=== PATIENT | male | born 1945 | race Native Hawaiian/Other Pacific Islander ===

== ENCOUNTER 2017-07-02 18:52 | Inpatient (IN) | payer OTHER, MEDICARE ==
[~2017-07-02] VITALS: Ht 165.1 cm; Wt 77.0 kg
[2017-07-02] VITALS (10 sets, daily range): BP systolic 62–103; BP diastolic 40–62; PULSE 90–115; RESP 16–20; TEMP 100.1–102.7; O2SAT 94–100
[~2017-07-02 18:52] MED LIST: ASPI81TA82 PO; HYDR-3129 PO; HYDR10TA65 PO; LEVO125T3 PO; MULTCAP14 PO; OMEG5CAP PO; OMEP40CA2 PO; PROBCAP4 PO; ROSU40 PO; VITA-13 PO; VITA-83 PO; VITA500S3 PO
[2017-07-02] MEDS ORDERED: SODIUM CHLOR 0.9% 1000 ML INJ 1,000 ML IV SCH (19:20)
[2017-07-02] MEDS ORDERED: ACETAMINOPHEN 325 MG TAB PO ONE (19:30)
[2017-07-02] MEDS ORDERED: MORPHINE SULFATE 4 MG/ML INJ IV PUSH ONE (19:30)
[2017-07-02] MEDS ORDERED: ONDANSETRON HCL 4 MG/2 ML VIAL IVP ONE (19:30)
--- NOTE | 2017-07-02 19:31 | PD ---
HPI Chief Complaint: Complaint Time Seen by Provider: 19:12 Travel History International Travel<30 days: No Contact w/Intl Traveler<30days: No Traveled to known affect area: No History of Present Illness HPI 72yo M with PMH of pituitary tumor s/p resection now on hydrocortisone, kidney stones, alpha thalassemia here with c/o not feeling well since yesterday. Pt had fever of 103.1F at home today and associated symptoms include dysuria, increased urinary frequency, nausea and generalized fatigue. Denies any chest pain, sob, vomiting, abdominal pain, focal weakness or numbness. Pt had urine infection 2 weeks ago and was given antibiotics by his urologist. PFSH Past Medical History Heart Rhythm Problems: No Cancer: No Cardiovascular Problems: No High Cholesterol: Yes Congestive Heart Failure: No Cerebrovascular Accident: No Diabetes: No Endocrine: Yes (PITUITARY SX X2 (BENIGN TUMOR)) Gastrointestinal Disorders: Yes (GERD) GERD: Yes Genitourinary: No Hepatitis: No Hiatal Hernia: No Immune Disorder: Yes (WEAKENED IMMUNE SYS. DUE TO PITUITARY INSUFF.) Musculoskeletal: Yes (LUMBAR PAIN, OSTEOPOROSI SPINAL STENOSIS) Neurologic: Yes (TRANSIENT NUMBNESS POSTERIOR FEET/ LEGS/HIPS) Psychiatric: No Reproductive: No Respiratory: Yes (SOB AT TIMES) Immunizations Current: Yes Seizures: No Thyroid Disease: Yes ?: Not Past Surgical History Abdominal Surgery: No AICD: No Body Medical Devices: CERVICAL PLATE Cardiac Surgery: No Ear Surgery: No Endocrine Surgery: Yes (EXC. BENIGN MASS PITUITARY X2) Eye Surgery: No Genitourinary Surgery: No Joint Replacement: No Neurologic Surgery: Yes (08/19/14 L2, 3, 4, 5-S1 DECOMPRESSIVE LAMINOTOMY, EVACUATION HEMATOMA) Oral Surgery: No Pacemaker: No Thoracic Surgery: No Other Surgery: Yes Social History Alcohol Use: No Tobacco Use: No Substance Use: No Allergies-Medications (Allergen,Severity, Reaction): Coded Allergies: No Known Allergies (Unverified Allergy, Unknown, 07/02/17) Reported Meds & Prescriptions Reported Meds & Active Scripts Active [place] 10-325 mg (Hydrocodone-Acetaminophen 10-325 mg) Acetaminophen 325/10 Hydrocodone Tab 1 Tab PO Q6H PRN Reported Probiotic Acidophilus (Acidophilus) 12.9 Mg (2 Billion Cell) Cap 1 Tab PO DAILY Vitamin C (Calcium Ascorbate) 500 Mg Tab 500 Mg PO DAILY Multi For Him (Multivitamins/Minerals) For Him Cap 1 Cap PO DAILY Crestor (Rosuvastatin Calcium) 40 Mg Tab 20 Mg PO HS Aspir-81 (Aspirin) 81 Mg Tab 81 Mg PO DAILY Vitamin B-12 (Cyanocobalamin) 500 Mcg Tab 1 Tab PO DAILY Vitamin D3 (Cholecalciferol) 1,000 Unit Tab 1,000 Unit PO BID Fish Oil 1200 mg ([place]-3 Fatty Acids) 1 Cap Cap 1 Cap PO DAILY TAKES 1 TSP OIL Levothyroxine 125 mcg (Levothyroxine Sodium) 125 Mcg Tab 1 Tab PO DAILY Omeprazole 40 mg (Omeprazole) 40 Mg Cap 40 Mg PO DAILY Hydrocortisone 10 Mg Tab 50 Mg PO BID INCREASE DIRECTED Review of Systems Except as stated in HPI: all other systems reviewed are Neg Physical Exam Narrative GENERAL: 72yo M in mild distress. SKIN: Focused skin assessment warm/dry. HEAD: Atraumatic. Normocephalic. EYES: Pupils equal and round. No scleral icterus. No injection or drainage. ENT: No nasal bleeding or discharge. Mucous membranes pink and moist. NECK: Trachea midline. No JVD. CARDIOVASCULAR: Tachycardic in the low 100s RESPIRATORY: No accessory muscle use. Clear to auscultation. Breath sounds equal bilaterally. GASTROINTESTINAL: Abdomen soft, +TTP suprapubic, LLQ, RLQ. No rebound tenderness or guarding. BACK: No CVA tenderness bilaterally. MUSCULOSKELETAL: No obvious deformities. No clubbing. No cyanosis. No edema. NEUROLOGICAL: Awake and alert. No obvious cranial nerve deficits. Motor grossly within normal limits. Normal speech. PSYCHIATRIC: Appropriate mood and affect; insight and judgment normal. Data Data Last Documented VS Vital Signs Date Time Temp Pulse Resp B/P (MAP) Pulse Ox O2 Delivery O2 Flow Rate FiO2 07/02/17 21:46 100.1 07/02/17 21:39 97 16 07/02/17 21:36 100 Nasal Cannula 3.00 Orders Orders Basic Metabolic Panel (Bmp) (07/02/17 19:20) Complete Blood Count With Diff (07/02/17 19:20) Lipase (07/02/17 19:20) Prothrombin Time / Inr (Pt) (07/02/17 19:20) Act Partial Throm Time (Ptt) (07/02/17 19:20) Urinalysis - C+S If Indicated (07/02/17 19:20) Ct Abd/Pel W Iv Contrast(Rout) (07/02/17 19:20) Morphine Inj (Morphine Inj) (07/02/17 19:30) Ondansetron Inj (Zofran Inj) (07/02/17 19:30) Sodium Chlor 0.9% 1000 Ml Inj (Ns 1000 M (07/02/17 19:20) Blood Culture (07/02/17 19:20) Lactic Acid Sepsis Protocol (07/02/17 19:20) Acetaminophen (Tylenol) (07/02/17 19:30) Influenzae A/B Antigen (07/02/17 19:25) Vancomycin Inj (Vancomycin Inj) (07/02/17 20:30) Piperacil-Tazo 3.375 Gm Premix (Zosyn 3. (07/02/17 20:30) Iodixanol 320 Inj (Rad Ct) (Visipaque 32 (07/02/17 20:40) Sodium Chlor 0.9% 1000 Ml Inj (Ns 1000 M (07/02/17 21:00) Electrocardiogram (07/02/17 ) Urine Culture (07/02/17 21:20) Sodium Chlor 0.9% 1000 Ml Inj (Ns 1000 M (07/02/17 22:00) Hydrocortisone Inj (Solucortef Inj) (07/02/17 22:00) Admit Order (Ed Use Only) (07/02/17 22:08) Troponin I (07/02/17 20:00) Labs Laboratory Tests Test 07/02/17 20:00 07/02/17 21:20 White Blood Count 9.9 TH/MM3 Red Blood Count 5.51 MIL/MM3 Hemoglobin 11.9 GM/DL Hematocrit 36.5 % Mean Corpuscular Volume 66.2 FL Mean Corpuscular Hemoglobin 21.6 PG Mean Corpuscular Hemoglobin Concent 32.6 % Red Cell Distribution Width 16.5 % Platelet Count 176 TH/MM3 Mean Platelet Volume 7.7 FL Neutrophils (%) (Auto) 80.2 % Lymphocytes (%) (Auto) 13.2 % Monocytes (%) (Auto) 3.0 % Eosinophils (%) (Auto) 0.4 % Basophils (%) (Auto) 3.2 % Neutrophils # (Auto) 8.0 TH/MM3 Lymphocytes # (Auto) 1.3 TH/MM3 Monocytes # (Auto) 0.3 TH/MM3 Eosinophils # (Auto) 0.0 TH/MM3 Basophils # (Auto) 0.3 TH/MM3 CBC Comment AUTO DIFF Differential Comment AUTO DIFF CONFIRMED Platelet Estimate NORMAL Platelet Morphology Comment NORMAL Ovalocytes 1+ Prothrombin Time 11.0 SEC Prothromb Time International Ratio 1.1 RATIO Activated Partial Thromboplast Time 24.6 SEC Blood Urea Nitrogen 22 MG/DL Creatinine 1.70 MG/DL Random Glucose 84 MG/DL Calcium Level 8.9 MG/DL Sodium Level 135 MEQ/L Potassium Level 3.3 MEQ/L Chloride Level 98 MEQ/L Carbon Dioxide Level 27.7 MEQ/L Anion Gap 9 MEQ/L Estimat Glomerular Filtration Rate 40 ML/MIN Lactic Acid Level 1.7 mmol/L Troponin I LESS THAN 0.02 NG/ML Lipase 201 U/L Urine Color YELLOW Urine Turbidity MARKED Urine pH 7.0 Urine Specific [place] 1.028 Urine Protein 100 mg/dL Urine Glucose (UA) NEG mg/dL Urine Ketones NEG mg/dL Urine Occult Blood LARGE Urine Nitrite POS Urine Bilirubin NEG Urine Leukocyte Esterase LARGE Urine RBC 10-14 /hpf Urine WBC INNUM /hpf Urine WBC Clumps MOD Urine Squamous Epithelial Cells 0-5 /hpf Urine Bacteria MOD /hpf Urine Mucus FEW /lpf Microscopic Urinalysis Comment CULTURE INDICATED MDM Medical Decision Making Medical Screen Exam Complete: Yes Emergency Medical Condition: Yes Interpretation(s) EKG: NSR 96bpm. Normal axis. ST depression V4-6. Differential Diagnosis Pyelonephritis vs. cystitis vs. obstructive uropathy vs. colitis vs. adrenal crisis. Narrative Course 72yo M here with dysuria, increased urinary frequency, fever, nausea. Pt is febrile, tachycardic and hypotensive at triage. BP is improved with systolic of 102 when he is in the medical bed. Will do sepsis work up including blood culture, lactic acid, and give acetaminophen and NS IVF. Pt did not take any antipyretic at home. Pt denies abdominal pain but has tenderness on abdominal exam. Will check UA and do CT a/p. Labs reviewed, no leukocytosis. H/H 11.9/36.5. Lactic acid at 1.7. Mild hypokalemia at 3.3, replaced orally. BUN/creatinine mildly elevated at 22/ 1.70. Lipase normal. UA showed positive nitrite. Large leukocyte. Pt empirically covered with vancomycin and zosyn. Pt is hypotensive after 1 liter of NS IVF. Currently receiving second NS IVF and will give a third NS IVF as well as hydrocortisone 100mg IV. Suspect adrenal crisis vs. septic shock. CT a/p showed no acute findings. EKG had some ischemic changes so troponin added but pt denies any chest pain or sob. Troponin negative. Pt has good mental status and is awake and answering questions and following command. Discussed with Dr. Echevarria and accepted to his service. He wants the patient transferred to [facility]. Critical Care Narrative Aggregate critical care time was 50 minutes. Time to perform other separately billable procedures was not included in the critical care time. My time did not include minutes spent treating any other patients simultaneously or on activities that did not directly contribute to the patient's treatment. The services I provided to this patient were to treat and/or prevent clinically significant deterioration that could result in: cardiovascular collapse or . I provided critical care services requiring my management, as noted below: Chart data review, documentation time, medication orders and management, vital sign assessments/reviewing monitor data, ordering and reviewing lab tests, ordering and interpreting/reviewing x-rays and diagnostic studies, care of the patient and discussion of the patient with the admitting physicians. Sepsis Criteria SIRS Criteria (2 or more): Temp > 100.9 or < 96.8, Heart rate over 90 Sepsis Criteria (SIRS+source): Infect source susp/known Severe Sepsis (+one): Hypotension Diagnosis Primary Impression: Sepsis Qualified Codes: A41.9 - Sepsis, unspecified organism Admitting Information Admitting Physician Requests: Admit Paula Cruz DO Jul 02, 2017 19:31
[2017-07-02 20:13] LABS: BASOPHIL # 0.3 TH/MM3 (0-0.2); BASOPHIL % 3.2 % (0.0-2.0); EOSINOPHIL % 0.4 % (0.0-4.0); HEMATOCRIT 36.5 % (39.0-51.0); HEMOGLOBIN 11.9 GM/DL (13.0-17.0); LYMPH % 13.2 % (9.0-44.0); LYMPHOCYTE # 1.3 TH/MM3 (1.0-4.8); MEAN CELL VOLUME 66.2 FL (80.0-100.0); MEAN CORPUSCULAR HEMOGLOBIN 21.6 PG (27.0-34.0); MEAN CORPUSCULAR HGB CONC 32.6 % (32.0-36.0); MEAN PLATELET VOLUME 7.7 FL (7.0-11.0); MONOCYTE # 0.3 TH/MM3 (0-0.9); NEUT % 80.2 % (16.0-70.0); PLATELET COUNT 176 TH/MM3 (150-450); RED BLOOD COUNT 5.51 MIL/MM3 (4.50-5.90); RED CELL DISTRIBUTION WIDTH 16.5 % (11.6-17.2); WHITE BLOOD COUNT 9.9 TH/MM3 (4.0-11.0)
[2017-07-02 20:19] LABS: CHLORIDE 98 MEQ/L (98-107); SODIUM (NA) 135 MEQ/L (136-145)
[2017-07-02 20:21] LABS: CALCIUM 8.9 MG/DL (8.5-10.1)
[2017-07-02 20:22] LABS: BICARBONATE 27.7 MEQ/L (21.0-32.0); BLOOD UREA NITROGEN 22 MG/DL (7-18); GLUCOSE,RANDOM 84 MG/DL (74-106)
[2017-07-02 20:24] LABS: INTERNATIONAL NORMALIZED RATIO 1.1 RATIO
[2017-07-02 20:25] LABS: GLOMERULAR FILTRATION RATE 40 ML/MIN (>89)
[2017-07-02] MEDS ORDERED: PIPERACIL-TAZO 3.375 GM PREMIX 50 ML IV ONE (20:30)
[2017-07-02] MEDS ORDERED: VANCOMYCIN INJ 1,150 MG in SODIUM CHLOR 0.9% 250 ML INJ 250 ML IV ONE (20:30)
[2017-07-02 20:38] LABS: OVALOCYTES 1+ (NORMAL)
[2017-07-02] MEDS ORDERED: IODIXANOL 320 MG/ML 10 ML VIAL (for Rad CT) IVCONTRAST ONE (20:40)
[2017-07-02] MEDS ORDERED: SODIUM CHLOR 0.9% 1000 ML INJ 1,000 ML IV ONE ×2 (21:00→22:00)
--- NOTE | 2017-07-02 21:07 | RADRPT ---
EXAM DATE/TIME: 07/02/2017 20:36 [place] COMPARISON: No previous studies available for comparison. INDICATIONS : Lower abdominal pain. Dysuria. Fever. Generalized weakness. IV CONTRAST: 50 cc Visipaque (iodixanol) IV ORAL CONTRAST: No oral contrast ingested. RADIATION DOSE: 9.67 CTDIvol (mGy) MEDICAL HISTORY : Gastroesophageal reflux disease. SURGICAL HISTORY : None. ENCOUNTER: Initial ACUITY: 2 days PAIN SCALE: 8/10 LOCATION: Bilateral lower quadrant TECHNIQUE: Volumetric scanning of the abdomen and pelvis was performed. Using automated exposure control and ad justment of the mA and/or kV according to patient size, radiation dose was kept as low as reasonably achievable to obtain optimal diagnostic quality images. DICOM format image data is available electro nically for review and comparison. FINDINGS: The lung bases demonstrate minimal dependent atelectasis. No acute findings in the liver, spleen, adrenals or pancreas. No calcified gallstones or biliary duct al dilatation. Left renal cyst measures 5.1 cm. 1 mm calcification lower pole left kidney. Right kidn ey unremarkable. There is colonic diverticulosis without evidence for diverticulitis. CONCLUSION: 1. No acute findings. Colonic diverticulosis without diverticulitis. Left renal cyst. Noam Ma MD on July 02, 2017 at 21:02 Board Certified Radiologist. This report was verified electronically.
[2017-07-02 21:27] LABS: BILIRUBIN, URINE NEG (NEG); BLOOD, URINE LARGE (NEG); GLUCOSE,URINE NEG (NEG); KETONE, URINE NEG (NEG); NITRITE,URINE POS (NEG); URINE LEUKOCYTE ESTERASE LARGE (NEG)
[2017-07-02 21:36] LABS: MUCUS URINE FEW /lpf (OCC); URINE COLOR YELLOW (YELLW/STRAW); WBC, URINE INNUM /hpf (0-5); WHITE BLOOD CELL CLUMPS MOD
[2017-07-02 21:37] LABS: BACTERIA, URINE MOD /hpf; SQUAMOUS EPITHELIAL CELL URINE 0-5 /hpf (0-5)
[2017-07-02] MEDS ORDERED: HYDROCORTISONE SOD SUCCINATE 100 MG VIAL IV PUSH ONE (22:00)
[2017-07-02] MEDS ORDERED: POTASSIUM CHLORIDE 20 MEQ CONTROLLED RELEASE TAB PO ONE (23:15)
[2017-07-03] VITALS (15 sets, daily range): BP systolic 94–120; BP diastolic 56–78; PULSE 72–99; RESP 17–26; TEMP 98.2–99.4; O2SAT 92–97
[2017-07-03 01:56] LABS: TROPONIN I LESS THAN 0.02 NG/ML (0.02-0.05)
[2017-07-03] MEDS ORDERED: SODIUM CHLOR 0.9% 1000 ML INJ 1,000 ML IV ONE ×2 (02:28)
[2017-07-03] MEDS ORDERED: SODIUM CHLOR 0.9% 1000 ML INJ 100 ML IV ONE (02:28)
[2017-07-03] MEDS ORDERED: MAGNESIUM HYDROXIDE SUSP 30 ML CUP PO PRN (02:30)
[2017-07-03] MEDS ORDERED: RESP: ALBUTEROL 2.5 MG/IPRATROPIUM 0.5 MG NEB (PRN) INH (02:30)
[2017-07-03] MEDS ORDERED: Vancomycin Consult Pharmacy 1 EA OTHER SCH (02:30)
[2017-07-03] MEDS ORDERED: TEMAZEPAM 15 MG CAP PO PRN (02:30)
[2017-07-03] MEDS ORDERED: ONDANSETRON HCL 4 MG/2 ML VIAL IV PUSH PRN (02:30)
[2017-07-03] MEDS ORDERED: MISCELLANEOUS NURSING INFORMATION XX SCH (02:30)
[2017-07-03] MEDS ORDERED: CHLORHEXIDINE GLUCONATE 2 % 1 PACK (2 CLOTHS) TOP PRN (02:30)
[2017-07-03] MEDS ORDERED: SENNOSIDES 8.6 MG TAB PO PRN (02:30)
[2017-07-03] MEDS ORDERED: ACETAMINOPHEN 325 MG TAB PO PRN (02:30)
[2017-07-03] MEDS ORDERED: BISACODYL 10 MG SUPP RECTAL PRN (02:30)
[2017-07-03] MEDS ORDERED: LACTULOSE SYRUP 20 GM/30 ML CUP PO PRN (02:30)
[2017-07-03] MEDS ORDERED: PIPERACIL-TAZO 4.5 GM PREMIX 100 ML IV SCH (02:30)
[2017-07-03] MEDS ORDERED: SODIUM CHLORIDE 0.9% FLUSH 10 ML FLUSH IV FLUSH PRN (02:30)
[2017-07-03] MEDS ORDERED: MORPHINE SULFATE 4 MG/ML INJ IV PUSH PRN (02:30)
--- NOTE | 2017-07-03 02:49 | HHI.HP ---
HPI Service Critical Care Medicine Primary Care Physician Harrison Curtis MD Admission Diagnosis Adrenal crisis Diagnosis: Travel History International Travel<30 Days: No Contact w/Intl Traveler <30 Da: No Traveled to Known Affected Are: No History of Present Illness 72-year-old male with PMH of pituitary tumor status post resection 30 years ago , on supplemental hydrocortisone, kidney stones, alpha thalassemia presents today with complaints of not feeling well since yesterday. He has had fever of 103.1F at home today and associated symptoms include dysuria, increased urinary frequency, nausea and generalized fatigue. He has had dysuria 2 weeks ago which he has completed course of antibiotics. Denies any chest pain, shortness of breath, vomiting, abdominal pain, focal weakness or numbness. Review of Systems Constitutional: COMPLAINS OF: Diaphoretic episodes, Fatigue, Fever, Change in appetite, Night Sweats, DENIES: Weight gain, Weight loss, Chills, Dizziness Endocrine: DENIES: Heat/cold intolerance, Polydipsia, Polyuria, Polyphagia Eyes: DENIES: Blurred vision, Diplopia, Eye inflammation, Eye pain, Vision loss , Photosensitivity, Double Vision Ears, nose, mouth, throat: DENIES: Tinnitus, Hearing loss, Vertigo, Nasal discharge, Oral lesions, Throat pain, Hoarseness, Ear Pain, Running Nose, Epistaxis, Sinus Pain, Toothache, Odynophagia Respiratory: DENIES: Apneas, Cough, Snoring, Wheezing, Hemoptysis, Sputum production, Shortness of breath Cardiovascular: DENIES: Chest pain, Palpitations, Syncope, Dyspnea on Exertion , PND, Lower Extremity Edema, Orthopnea, Claudication Gastrointestinal: DENIES: Abdominal pain, Black stools, Bloody stools, Constipation, Diarrhea, Nausea, Vomiting, Difficulty Swallowing, Anorexia Genitourinary: DENIES: Sexual dysfunction, Urinary frequency, Urinary incontinence, Urgency, Hematuria, Dysuria, Nocturia, Penile Discharge, Testicular Pain, Testicular Swelling Musculoskeletal: COMPLAINS OF: Joint pain, Muscle aches, DENIES: Stiffness, Joint Swelling, Back pain, Neck pain Integumentary: DENIES: Abnormal pigmentation, Nail changes, Pruritus, Rash Hematologic/lymphatic: DENIES: Bruising, Lymphadenopathy Immunologic/allergic: DENIES: Eczema, Urticaria Neurologic: COMPLAINS OF: Poor Balance, DENIES: Abnormal gait, Headache, Localized weakness, Paresthesias, Seizures, Speech Problems, Tremor Psychiatric: DENIES: Anxiety, Confusion, Mood changes, Depression, Hallucinations, Agitation, Suicidal Ideation, Homicidal Ideation, Delusions Past Family Social History Allergies: Coded Allergies: No Known Allergies (Unverified Allergy, Unknown, 07/02/17) Past Medical History Pituitary tumor resection Hypothyroidism Hyperlipidemia Gastroesophageal reflux Past Surgical History Pituitary tumor resection Reported Medications Reported Meds & Active Scripts Active [place] 10-325 mg (Hydrocodone-Acetaminophen 10-325 mg) Acetaminophen 325/10 Hydrocodone Tab 1 Tab PO Q6H PRN Reported Probiotic Acidophilus (Acidophilus) 12.9 Mg (2 Billion Cell) Cap 1 Tab PO DAILY Vitamin C (Calcium Ascorbate) 500 Mg Tab 500 Mg PO DAILY Multi For Him (Multivitamins/Minerals) For Him Cap 1 Cap PO DAILY Crestor (Rosuvastatin Calcium) 40 Mg Tab 20 Mg PO HS Aspir-81 (Aspirin) 81 Mg Tab 81 Mg PO DAILY Vitamin B-12 (Cyanocobalamin) 500 Mcg Tab 1 Tab PO DAILY Vitamin D3 (Cholecalciferol) 1,000 Unit Tab 1,000 Unit PO BID Fish Oil 1200 mg ([place]-3 Fatty Acids) 1 Cap Cap 1 Cap PO DAILY TAKES 1 TSP OIL Levothyroxine 125 mcg (Levothyroxine Sodium) 125 Mcg Tab 1 Tab PO DAILY Omeprazole 40 mg (Omeprazole) 40 Mg Cap 40 Mg PO DAILY Hydrocortisone 10 Mg Tab 50 Mg PO BID INCREASE DIRECTED Active Ordered Medications Current Medications Medications (Trade) Dose Ordered Sig/Ynes Route PRN Reason Start Time Stop Time Status Last Admin Dose Admin Aspirin (Aspirin Chew) 81 mg DAILY PO 07/03/17 09:00 Cholecalciferol (Vitamin D3) 1,000 units BID PO 07/03/17 09:00 UNV Hydrocortisone (Cortef) 50 mg BID PO 07/03/17 09:00 UNV Levothyroxine Sodium (Synthroid) 125 mcg DAILY PO 07/03/17 09:00 UNV Non-Formulary Medication 500 mg DAILY PO 07/03/17 09:00 UNV Non-Formulary Medication 1 tab DAILY PO 07/03/17 09:00 UNV Non-Formulary Medication 1 cap DAILY PO 07/03/17 09:00 UNV Non-Formulary Medication 1 cap DAILY PO 07/03/17 09:00 UNV Non-Formulary Medication 1 tab DAILY PO 07/03/17 09:00 UNV Non-Formulary Medication 20 mg HS PO 07/03/17 21:00 UNV Sodium Chloride 1,000 ml @ 154 mls/hr Q6H30M IV 07/03/17 02:28 UNV Sodium Chloride (NS Flush) 2 ml UNSCH PRN IV FLUSH FLUSH AFTER USING IV ACCESS 07/03/17 02:30 UNV Sodium Chloride (NS Flush) 2 ml BID IV FLUSH 07/03/17 09:00 UNV Acetaminophen (Tylenol) 650 mg Q6H PRN PO PAIN 1-5 AND/OR FEVER >101F 07/03/17 02:30 Morphine Sulfate (Morphine Inj) 2 mg Q2H PRN IV PUSH PAIN SCALE 6 TO 10 07/03/17 02:30 UNV Famotidine (Pepcid Inj) 20 mg Q12HR IV PUSH 07/03/17 09:00 UNV Ondansetron HCl (Zofran Inj) 4 mg Q6H PRN IV PUSH NAUSEA OR VOMITING 07/03/17 02:30 UNV Temazepam (Restoril) 15 mg HS PRN PO INSOMNIA 07/03/17 02:30 UNV Albuterol/ Ipratropium (Duoneb Neb) 1 ampule Q2HR NEB PRN INH WHEEZING 07/03/17 02:30 Heparin Sodium (Porcine) (Heparin Inj) 5,000 units Q8H SQ 07/03/17 02:30 UNV Miscellaneous Information 1 Q361D XX 07/03/17 02:30 UNV Chlorhexidine Gluconate (Chlorhexidine 2% Cloth) 3 pack Taper DAILY@04 TOP 07/03/17 04:00 06/29/18 03:59 UNV Chlorhexidine Gluconate (Chlorhexidine 2% Cloth) 3 pack UNSCH PRN TOP HYGIENIC CARE 07/03/17 02:30 UNV Senna/Docusate Sodium (Nuvia-Colace) 1 tab BID PO 07/03/17 09:00 UNV Magnesium Hydroxide (Milk Of Magnesia Liq) 30 ml Q12H PRN PO Mild constipation 07/03/17 02:30 UNV Sennosides (Senokot) 17.2 mg Q12H PRN PO Moderate constipation 07/03/17 02:30 UNV Bisacodyl (Dulcolax Supp) 10 mg DAILY PRN RECTAL SEVERE CONSITIPATION 07/03/17 02:30 UNV Lactulose (Lactulose Liq) 30 ml DAILY PRN PO SEVERE CONSITIPATION 07/03/17 02:30 UNV Piperacillin Sod/ Tazobactam Sod 100 ml @ 200 mls/hr Q6H IV 07/03/17 02:30 UNV Pharmacy Profile Note 0 ml @ 0 mls/hr UNSCH OTHER 07/03/17 02:30 Sodium Chloride 1,000 ml @ 1,000 mls/hr Q1H ONCE IV 07/03/17 02:28 07/03/17 03:27 UNV Sodium Chloride 1,000 ml @ 1,000 mls/hr Q1H ONCE IV 07/03/17 02:28 07/03/17 03:27 UNV Sodium Chloride 100 ml @ 1,000 mls/hr Q6M ONCE IV 07/03/17 02:28 07/03/17 02:33 UNV Family History Mother has at 72 Father has at 69 Sister has at 67 Brother has 65 Another brother 76 and alive Social History 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 He's got 3 children. He he has never smoked , abused alcohol or illicit drugs Physical Exam Vital Signs Vital Signs Date Time Temp Pulse Resp B/P (MAP) Pulse Ox O2 Delivery O2 Flow Rate FiO2 07/03/17 02:09 95 Nasal Cannula 2.00 07/03/17 01:00 07/03/17 00:45 84 18 94/64 (74) 97 Room Air 07/02/17 23:45 100.2 90 18 93/60 (71) 97 Room Air 07/02/17 22:45 92 18 84/51 (62) 98 Room Air 07/02/17 21:46 100.1 07/02/17 21:39 97 16 72/47 (55) 07/02/17 21:36 96 68/46 (53) 100 Nasal Cannula 3.00 07/02/17 21:29 97 16 64/42 (49) 07/02/17 20:30 105 20 100/62 (75) 98 Room Air 07/02/17 20:00 112 20 62/40 (47) 97 Room Air 07/02/17 19:15 102.4 115 20 103/52 (69) 98 Room Air 07/02/17 19:04 102.7 103 16 83/53 (63 94 Physical Exam GENERAL: Well-nourished, well-developed patient. SKIN: Warm and dry. HEAD: Normocephalic. EYES: No scleral icterus. No injection or drainage. NECK: Supple, trachea midline. No JVD or lymphadenopathy. CARDIOVASCULAR: Regular rate and rhythm without murmurs, gallops, or rubs. RESPIRATORY: Breath sounds equal bilaterally. No accessory muscle use. GASTROINTESTINAL: Abdomen soft, non-tender, nondistended. MUSCULOSKELETAL: No cyanosis, or edema. BACK: Nontender without obvious deformity. NEURO EXAM: GCS: M V E Mental Status: The patient is alert and oriented to person, place, and time with normal speech. Cranial Nerves: Visual acuity intact bilaterally. Visual bejarano normal in all quadrants. Pupils are round, reactive to light. Extraocular movements are intact without ptosis. Hearing is normal bilaterally. Voice is normal. Tongue protrudes midline and moves symmetrically. Reflexes: Biceps, patellar, and Achilles are 2/4 bilaterally. No clonus. Sensation: Sensation is intact bilaterally to pain and light touch. Two-point discrimination is intact. Motor: Good muscle tone. Strength is 5/5 bilaterally. Cerebellar: [id number] and [id number] test normal bilaterally. Laboratory Laboratory Tests Test 07/02/17 20:00 07/02/17 21:20 White Blood Count 9.9 Red Blood Count 5.51 Hemoglobin 11.9 Hematocrit 36.5 Mean Corpuscular Volume 66.2 Mean Corpuscular Hemoglobin 21.6 Mean Corpuscular Hemoglobin Concent 32.6 Red Cell Distribution Width 16.5 Platelet Count 176 Mean Platelet Volume 7.7 Neutrophils (%) (Auto) 80.2 Lymphocytes (%) (Auto) 13.2 Monocytes (%) (Auto) 3.0 Eosinophils (%) (Auto) 0.4 Basophils (%) (Auto) 3.2 Neutrophils # (Auto) 8.0 Lymphocytes # (Auto) 1.3 Monocytes # (Auto) 0.3 Eosinophils # (Auto) 0.0 Basophils # (Auto) 0.3 CBC Comment AUTO DIFF Differential Comment AUTO DIFF CONFIRMED Platelet Estimate NORMAL Platelet Morphology Comment NORMAL Ovalocytes 1+ Prothrombin Time 11.0 Prothromb Time International Ratio 1.1 Activated Partial Thromboplast Time 24.6 Blood Urea Nitrogen 22 Creatinine 1.70 Random Glucose 84 Calcium Level 8.9 Sodium Level 135 Potassium Level 3.3 Chloride Level 98 Carbon Dioxide Level 27.7 Anion Gap 9 Estimat Glomerular Filtration Rate 40 Lactic Acid Level 1.7 Troponin I LESS THAN 0.02 Lipase 201 Urine Color YELLOW Urine Turbidity MARKED Urine pH 7.0 Urine Specific [place] 1.028 Urine Protein 100 Urine Glucose (UA) NEG Urine Ketones NEG Urine Occult Blood LARGE Urine Nitrite POS Urine Bilirubin NEG Urine Leukocyte Esterase LARGE Urine RBC 10-14 Urine WBC INNUM Urine WBC Clumps MOD Urine Squamous Epithelial Cells 0-5 Urine Bacteria MOD Urine Mucus FEW Microscopic Urinalysis Comment CULTURE INDICATED Date/Time Source Procedure Growth Status 07/02/17 20:00 Blood Peripheral Aerobic Blood Culture Pending Received 07/02/17 20:00 Blood Peripheral Anaerobic Blood Culture Pending Received 07/02/17 20:00 Nasal Aspirate Influenza Types A,B Antigen (LILA) - Final NEGATIVE FOR FLU A AND B ANTIGEN.... Complete 07/02/17 21:20 Urine Clean Catch Urine Culture Pending Received Result Diagram: 07/02/17199907/02/171999 Imaging Last 24 hours Impressions Abdomen/Pelvis CT 07/02/171919 Signed Impressions: Service Date/Time: Sunday, July 02, 2017 20:36 - CONCLUSION: 1. No acute findings. Colonic diverticulosis without diverticulitis. Left renal cyst. Noam Ma MD Septic Shock Reassessment Septic shock perfusion: reassessment completed Caprini VTE Risk Assessment Caprini VTE Risk Assessment: Mod/High Risk (score >= 2) Caprini Risk Assessment Model Point Value = 1 Point Value = 2 Point Value = 3 Point Value = 5 Age 41-60 Minor surgery BMI > 25 kg/m2 Swollen legs Varicose veins or History of unexplained or recurrent spontaneous Oral contraceptives or hormone replacement Sepsis (< 1 month) Serious lung disease, including pneumonia (< 1 month) Abnormal pulmonary function Acute myocardial infarction Congestive heart failure (< 1 month) History of inflammatory bowel disease Medical patient at bed rest Age 61-74 Arthroscopic surgery Major open surgery (> 45 min) Laparoscopic surgery (> 45 min) Malignancy Confined to bed (> 72 hours) Immobilizing plaster cast Central venous access Age >= 75 History of VTE Family history of VTE Factor V Leiden Prothrombin [id number] Lupus anticoagulant Anticardiolipin antibodies Elevated serum homocysteine Heparin-induced thrombocytopenia Other congenital or acquired thrombophilia Stroke (< 1 month) Elective arthroplasty Hip, pelvis, or leg fracture Acute spinal cord injury (< 1 month) Prophylaxis Regimen Total Risk Factor Score Risk Level Prophylaxis Regimen 0-1 Low Early ambulation 2 Moderate Order ONE of the following: *Sequential Compression Device (SCD) *Heparin 5000 units SQ BID 3-4 Higher Order ONE of the following medications: *Heparin 5000 units SQ TID *Enoxaparin/Lovenox 40 mg SQ daily (WT < 150 kg, CrCl > 30 mL/min) *Enoxaparin/Lovenox 30 mg SQ daily (WT < 150 kg, CrCl > 10-29 mL/min) *Enoxaparin/Lovenox 30 mg SQ BID (WT < 150 kg, CrCl > 30 mL/min) AND/OR *Sequential Compression Device (SCD) 5 or more Highest Order ONE of the following medications: *Heparin 5000 units SQ TID (Preferred with Epidurals) *Enoxaparin/Lovenox 40 mg SQ daily (WT < 150 kg, CrCl > 30 mL/min) *Enoxaparin/Lovenox 30 mg SQ daily (WT < 150 kg, CrCl > 10-29 mL/min) *Enoxaparin/Lovenox 30 mg SQ BID (WT < 150 kg, CrCl > 30 mL/min) AND *Sequential Compression Device (SCD) Assessment and Plan Assessment and Plan Urosepsis - Panculture - Broad-spectrum antibiotic - De-escalate per sensitivity - IV fluids resuscitation - Influenza negative 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 Time to perform other separately billable procedures was not included in the critical care time. Maxi Echevarria MD Jul 03, 2017 02:49
[2017-07-03] MEDS: CHLORHEXIDINE GLUCONATE 2 % 1 PACK (2 CLOTHS) TOP SCH (02:50)
[2017-07-03] MEDS: PIPERACIL-TAZO 2.25 GM PREMIX 50 ML IV SCH ×4 (04:19→21:01)
[2017-07-03] MEDS: LEVOTHYROXINE SODIUM 125 MCG TAB PO SCH (05:21)
[2017-07-03] MEDS: SODIUM CHLOR 0.9% 1000 ML INJ 1,000 ML IV SCH ×4 (05:21→21:37)
[2017-07-03] MEDS: HEPARIN SODIUM - SQ 10,000 UNITS/ML VIAL SQ SCH ×3 (05:21→21:00)
[2017-07-03] MEDS ORDERED: PROBIOTIC PRODUCT PO SCH (09:00)
[2017-07-03] MEDS ORDERED: NON-FORMULARY DRUG (Omega-3 Fatty Acids (Fish Oil 1200 mg) 1 CAP) PO SCH (09:00)
[2017-07-03] MEDS: ASCORBIC ACID 500 MG TAB PO SCH (09:17)
[2017-07-03] MEDS: CHOLECALCIFEROL (VIT D3) 1000 UNIT TAB PO SCH ×2 (09:17→21:00)
[2017-07-03] MEDS: MULTIVITAMINS/MINERALS THERAPEUTIC TAB PO SCH (09:17)
[2017-07-03] MEDS: ASPIRIN 81 MG CHEW TAB PO SCH (09:17)
[2017-07-03] MEDS: CYANOCOBALAMIN 100 MCG TAB PO SCH (09:17)
[2017-07-03] MEDS: FAMOTIDINE 20 MG/2 ML VIAL IV PUSH SCH ×2 (09:18→21:00)
[2017-07-03] MEDS: SODIUM CHLORIDE 0.9% FLUSH 10 ML FLUSH IV FLUSH SCH ×2 (09:18→21:01)
[2017-07-03] MEDS: DOCUSATE SODIUM 50 MG/SENNA 8.6 MG TAB PO SCH ×2 (10:46→21:00)
[2017-07-03] MEDS: HYDROCORTISONE 10 MG TAB PO SCH ×2 (10:46→21:01)
[2017-07-03] MEDS ORDERED: VANCOMYCIN INJ 1,500 MG in SODIUM CHLORID 0.9% 500 ML INJ 500 ML IV SCH (16:00)
[2017-07-03] MEDS: ATORVASTATIN 40 MG TAB PO SCH (21:00)
--- NOTE | 2017-07-03 21:26 | EKG ---
Date Performed: 07/02/2017 Time Performed: 21:48:33 PTAGE: 72 years EKG: Sinus rhythm ST DEVIATION AND MODERATE T-WAVE ABNORMALITY, CONSIDER LATERAL ISCHEMIA ABNORMAL ECG NO PREVIOUS TRACING DOCTOR: Mauricio Ny Interpretating Date/Time 07/03/2017 21:25:02
[2017-07-04] VITALS (12 sets, daily range): BP systolic 116–150; BP diastolic 61–81; PULSE 70–100; RESP 20–30; TEMP 98.6–99.3; O2SAT 93–98
[2017-07-04] MEDS: PIPERACIL-TAZO 2.25 GM PREMIX 50 ML IV SCH ×2 (03:12→09:18)
[2017-07-04 03:54] LABS: AUTOMATED NEUTROPHIL # 6.6 TH/MM3 (1.8-7.7); BASOPHIL # 0.1 TH/MM3 (0-0.2); BASOPHIL % 0.8 % (0.0-2.0); EOSINOPHIL % 0.3 % (0.0-4.0); HEMATOCRIT 30.9 % (39.0-51.0); LYMPH % 8.7 % (9.0-44.0); LYMPHOCYTE # 0.7 TH/MM3 (1.0-4.8); MEAN CELL VOLUME 65.5 FL (80.0-100.0); MEAN CORPUSCULAR HEMOGLOBIN 21.2 PG (27.0-34.0); MEAN CORPUSCULAR HGB CONC 32.4 % (32.0-36.0); MEAN PLATELET VOLUME 8.3 FL (7.0-11.0); MONO % 5.4 % (0.0-8.0); MONOCYTE # 0.4 TH/MM3 (0-0.9); NEUT % 84.8 % (16.0-70.0); PLATELET COUNT 135 TH/MM3 (150-450); RED BLOOD COUNT 4.72 MIL/MM3 (4.50-5.90); WHITE BLOOD COUNT 7.7 TH/MM3 (4.0-11.0)
[2017-07-04] MEDS: CHLORHEXIDINE GLUCONATE 2 % 1 PACK (2 CLOTHS) TOP SCH (04:00)
[2017-07-04 04:01] LABS: INTERNATIONAL NORMALIZED RATIO 1.1 RATIO
[2017-07-04] MEDS: SODIUM CHLOR 0.9% 1000 ML INJ 1,000 ML IV SCH ×4 (04:08→23:58)
[2017-07-04 04:48] LABS: ALBUMIN 2.9 GM/DL (3.4-5.0); ALT (GPT) 26 U/L (12-78); AST (GOT) 27 U/L (15-37); BICARBONATE 22.5 MEQ/L (21.0-32.0); BLOOD UREA NITROGEN 13 MG/DL (7-18); CALCIUM 7.8 MG/DL (8.5-10.1); CHLORIDE 109 MEQ/L (98-107); CREATININE 1.24 MG/DL (0.60-1.30); GLOMERULAR FILTRATION RATE 57 ML/MIN (>89); GLUCOSE,RANDOM 117 MG/DL (74-106); MAGNESIUM 1.9 MG/DL (1.5-2.5); SODIUM (NA) 142 MEQ/L (136-145)
[2017-07-04 04:51] LABS: ALKALINE PHOSPHATASE 33 U/L (45-117); PHOSPHORUS 2.6 MG/DL (2.5-4.9); TOTAL PROTEIN 5.7 GM/DL (6.4-8.2)
[2017-07-04] MEDS: LEVOTHYROXINE SODIUM 125 MCG TAB PO SCH (05:11)
[2017-07-04] MEDS: HEPARIN SODIUM - SQ 10,000 UNITS/ML VIAL SQ SCH ×3 (05:11→20:35)
[2017-07-04] MEDS: DOCUSATE SODIUM 50 MG/SENNA 8.6 MG TAB PO SCH ×2 (09:00→20:37)
[2017-07-04] MEDS: ASCORBIC ACID 500 MG TAB PO SCH (09:12)
[2017-07-04] MEDS: MULTIVITAMINS/MINERALS THERAPEUTIC TAB PO SCH (09:12)
[2017-07-04] MEDS: HYDROCORTISONE 10 MG TAB PO SCH ×2 (09:12→20:36)
[2017-07-04] MEDS: FAMOTIDINE 20 MG/2 ML VIAL IV PUSH SCH ×2 (09:12→20:36)
[2017-07-04] MEDS: CHOLECALCIFEROL (VIT D3) 1000 UNIT TAB PO SCH ×2 (09:12→20:36)
[2017-07-04] MEDS: ASPIRIN 81 MG CHEW TAB PO SCH (09:12)
[2017-07-04] MEDS: CYANOCOBALAMIN 100 MCG TAB PO SCH (09:13)
[2017-07-04] MEDS: SODIUM CHLORIDE 0.9% FLUSH 10 ML FLUSH IV FLUSH SCH ×2 (09:13→20:36)
--- NOTE | 2017-07-04 14:15 | HHI.PR ---
Subjective Remarks The pt was feeling well. He had family at the bedside. He has not had an appetite for a while. He says he has had some burning on urination and shortness of breath. Discussed with nursing. Objective Vitals Vital Signs Date Time Temp Pulse Resp B/P (MAP) Pulse Ox O2 Delivery O2 Flow Rate FiO2 07/04/17 12:00 95 07/04/17 12:00 98.7 84 20 148/81 (103) 93 07/04/17 10:00 96 07/04/17 08:00 98.7 70 22 132/71 (91) 96 07/04/17 08:00 75 07/04/17 07:00 97 Room Air 07/04/17 06:00 80 07/04/17 04:00 98.6 92 25 116/61 (79) 93 07/04/17 04:00 92 07/04/17 02:00 83 07/04/17 00:00 86 07/04/17 00:00 99.3 86 21 139/76 (97) 94 07/03/17 22:00 90 07/03/17 21:36 93 Nasal Cannula 2.00 07/03/17 20:00 99 07/03/17 20:00 99.4 96 26 120/68 (85) 92 07/03/17 19:56 96 21 07/03/17 19:00 93 Room Air 07/03/17 18:00 88 07/03/17 16:00 82 07/03/17 16:00 98.8 82 17 116/68 (84) 93 07/03/17 14:00 82 I/O 07/03/17 07/03/17 07/03/17 07/04/17 07/04/17 07/04/17 07:00 15:00 23:00 07:00 15:00 23:00 Intake Total 4709.5 ml 1000 ml 2265 ml 1290 ml 1050 ml Output Total 350 ml 885 ml 1250 ml Balance 4359.5 ml 1000 ml 1380 ml 40 ml 1050 ml Intake Oral 120 ml 600 ml 240 ml IV Total 4589.5 ml 1000 ml 1665 ml 1050 ml 1050 ml Output Urine Total 350 ml 885 ml 1250 ml # Voids 2 3 # Bowel Movements 0 2 1 1 Result Diagram: 07/04/17 03307/04/17 033 Imaging Last Impressions Abdomen/Pelvis CT 07/02/170 Signed Impressions: Service Date/Time: Sunday, July 02, 2017 20:36 - CONCLUSION: 1. No acute findings. Colonic diverticulosis without diverticulitis. Left renal cyst. Noam Ma MD Objective Remarks GENERAL: Well-nourished, well-developed patient. SKIN: Warm and dry. HEAD: Normocephalic. EYES: No scleral icterus. No injection or drainage. NECK: Supple, trachea midline. No JVD or lymphadenopathy. CARDIOVASCULAR: Regular rate and rhythm without murmurs, gallops, or rubs. RESPIRATORY: Diffuse wheezing. GASTROINTESTINAL: Abdomen soft, non-tender, nondistended. MUSCULOSKELETAL: No cyanosis, or edema. BACK: Nontender without obvious deformity. NEURO: No gross deficits. PSYCH: Mood and affect appropriate. Medications and IVs Current Medications Medications (Trade) Dose Ordered Sig/Ynes Route Start Time Stop Time Status Last Admin (Aspirin Chew) 81 mg DAILY PO 07/03/17 09:00 07/04/17 09:12 (Vitamin D3) 1,000 units BID PO 07/03/17 09:00 07/04/17 09:12 (Cortef) 50 mg BID PO 07/03/17 09:00 07/04/17 09:12 (Synthroid) 125 mcg DAILY@0600 PO 07/03/17 06:00 07/04/17 05:11 (Vitamin C) 500 mg DAILY PO 07/03/17 09:00 07/04/17 09:12 (Vitamin B12) 500 mcg DAILY PO 07/03/17 09:00 07/04/17 09:13 (Theragran M Tab) 1 tab DAILY PO 07/03/17 09:00 07/04/17 09:12 (Lipitor) 40 mg HS PO 07/03/17 21:00 07/03/17 21:00 Sodium Chloride 1,000 ml @ 154 mls/hr Q6H30M IV 07/03/17 02:28 07/04/17 11:10 (NS Flush) 2 ml UNSCH PRN IV FLUSH 07/03/17 02:30 (NS Flush) 2 ml BID IV FLUSH 07/03/17 09:00 07/04/17 09:13 (Tylenol) 650 mg Q6H PRN PO 07/03/17 02:30 (Morphine Inj) 2 mg Q2H PRN IV PUSH 07/03/17 02:30 (Pepcid Inj) 10 mg Q12HR IV PUSH 07/03/17 09:00 07/04/17 09:12 (Zofran Inj) 4 mg Q6H PRN IV PUSH 07/03/17 02:30 (Restoril) 15 mg HS PRN PO 07/03/17 02:30 (Duoneb Neb) 1 ampule Q2HR NEB PRN INH 07/03/17 02:30 (Heparin Inj) 5,000 units Q8HR SQ 07/03/17 06:00 07/04/17 05:11 Miscellaneous Information 1 Q361D XX 07/03/17 02:30 07/03/17 02:52 (Chlorhexidine 2% Cloth) 3 pack Taper DAILY@04 TOP 07/03/17 04:00 06/29/18 03:59 (Chlorhexidine 2% Cloth) 3 pack UNSCH PRN TOP 07/03/17 02:30 (Nuvia-Colace) 1 tab BID PO 07/03/17 09:00 (Milk Of Magnesia Liq) 30 ml Q12H PRN PO 07/03/17 02:30 (Senokot) 17.2 mg Q12H PRN PO 07/03/17 02:30 (Dulcolax Supp) 10 mg DAILY PRN RECTAL 07/03/17 02:30 (Lactulose Liq) 30 ml DAILY PRN PO 07/03/17 02:30 Pharmacy Profile Note 0 ml @ 0 mls/hr UNSCH OTHER 07/03/17 02:30 Piperacillin Sod/ Tazobactam Sod 50 ml @ 100 mls/hr Q6H IV 07/03/17 03:00 07/04/17 09:18 Vancomycin HCl 1500 mg/Sodium Chloride 515 ml @ 250 mls/hr Q24H IV 07/03/17 16:00 07/03/17 16:18 Miscellaneous Information SPECIFIC LAB TO BE DRAWN:VANCOMYCIN TROUGH DATE TO... ONCE ONCE .XX 07/06/17 15:45 07/06/17 15:46 A/P Assessment and Plan Sepsis Likely urosepsis. Flu negative. - Panculture - Broad-spectrum antibiotic - De-escalate per sensitivity - IV fluids. - CXR. Wheezing Unsure of etiology. - CXR pending. - standing nebs added. - IS. Hypopituitarism The pt presented with hypotension. On cortisol and levothyroxine. - Cortisol and levothyroxine per home dosing. - IVFs. Renal insufficiency Improved with IVFs. - continue IVFs. - follow BMP and avoid nephrotoxins. PPx: Subcutaneous heparin Discharge Planning Hopefully d/c in 1-2 days Héctor Downey DO Jul 04, 2017 14:15
[2017-07-04] MEDS: cefTRIAXone INJ 1,000 MG in SODIUM CHLORIDE 0.9% INJ 100 ML IV SCH (14:16)
[2017-07-04] MEDS: RESP: ALBUTEROL 2.5 MG/IPRATROPIUM 0.5 MG NEB (SCH) NEB ×2 (14:46→20:00)
--- NOTE | 2017-07-04 14:52 | RADRPT ---
EXAM DATE/TIME: 07/04/2017 14:22 [facility] COMPARISON: No previous studies available for comparison. INDICATIONS : Dyspnea MEDICAL HISTORY : Gastroesophageal reflux disease. SURGICAL HISTORY : None. ENCOUNTER: Initial ACUITY: 2 days PAIN SCORE: 0/10 LOCATION: Bilateral chest FINDINGS: Interstitial prominence is noted throughout both lungs. There is increased density in left base romero cterization of evolving airspace disease and possible small effusion. Heart is within normal limits in size. CONCLUSION: Basilar interstitial prominence, left basilar airspace disease and suspected small left effusion whic h may represent mild congestion. Bobby Monzon MD on July 04, 2017 at 14:49 Board Certified Radiologist. This report was verified electronically.
[2017-07-04] MEDS: ATORVASTATIN 40 MG TAB PO SCH (20:37)
[2017-07-05] VITALS (10 sets, daily range): BP systolic 131–152; BP diastolic 70–89; PULSE 78–94; RESP 18–34; TEMP 98.8–99.5; O2SAT 92–99
[2017-07-05] MEDS: CHLORHEXIDINE GLUCONATE 2 % 1 PACK (2 CLOTHS) TOP SCH (00:22)
[2017-07-05 04:23] LABS: HEMATOCRIT 30.3 % (39.0-51.0); MEAN CELL VOLUME 65.3 FL (80.0-100.0); MEAN CORPUSCULAR HEMOGLOBIN 21.5 PG (27.0-34.0); MEAN CORPUSCULAR HGB CONC 32.9 % (32.0-36.0); MEAN PLATELET VOLUME 8.1 FL (7.0-11.0); PLATELET COUNT 155 TH/MM3 (150-450); RED BLOOD COUNT 4.64 MIL/MM3 (4.50-5.90); RED CELL DISTRIBUTION WIDTH 17.7 % (11.6-17.2); WHITE BLOOD COUNT 7.5 TH/MM3 (4.0-11.0)
[2017-07-05 04:46] LABS: BICARBONATE 24.1 MEQ/L (21.0-32.0); CREATININE 1.15 MG/DL (0.60-1.30); MAGNESIUM 2.1 MG/DL (1.5-2.5)
[2017-07-05] MEDS: LEVOTHYROXINE SODIUM 125 MCG TAB PO SCH (05:34)
[2017-07-05] MEDS: HEPARIN SODIUM - SQ 10,000 UNITS/ML VIAL SQ SCH ×3 (05:37→21:34)
[2017-07-05] MEDS: SODIUM CHLOR 0.9% 1000 ML INJ 1,000 ML IV SCH (05:37)
[2017-07-05] MEDS: ASPIRIN 81 MG CHEW TAB PO SCH (08:39)
[2017-07-05] MEDS: CHOLECALCIFEROL (VIT D3) 1000 UNIT TAB PO SCH ×2 (08:39→21:34)
[2017-07-05] MEDS: MULTIVITAMINS/MINERALS THERAPEUTIC TAB PO SCH (08:39)
[2017-07-05] MEDS: DOCUSATE SODIUM 50 MG/SENNA 8.6 MG TAB PO SCH ×2 (08:40→21:34)
[2017-07-05] MEDS: SODIUM CHLORIDE 0.9% FLUSH 10 ML FLUSH IV FLUSH SCH ×2 (08:41→21:00)
[2017-07-05] MEDS: HYDROCORTISONE 10 MG TAB PO SCH ×2 (08:41→21:34)
[2017-07-05] MEDS: ASCORBIC ACID 500 MG TAB PO SCH (08:41)
[2017-07-05] MEDS: FAMOTIDINE 20 MG/2 ML VIAL IV PUSH SCH (08:41)
[2017-07-05] MEDS: CYANOCOBALAMIN 100 MCG TAB PO SCH (08:41)
[2017-07-05] MEDS: RESP: ALBUTEROL 2.5 MG/IPRATROPIUM 0.5 MG NEB (SCH) NEB ×3 (08:42→22:20)
[2017-07-05] MEDS ORDERED: POTASSIUM CHLORIDE 25 MEQ EFFERVESCENT TAB PO ONE (09:00)
[2017-07-05] MEDS ORDERED: methylPREDNISolone SOD SUCC 125 MG/2 ML VIAL IV PUSH ONE (09:00)
[2017-07-05] MEDS ORDERED: AZITHROMYCIN INJ 500 MG in SODIUM CHLOR 0.9% 250 ML INJ 250 ML IV ONE (09:00)
--- NOTE | 2017-07-05 09:26 | RADRPT ---
EXAM DATE/TIME: 07/05/2017 09:00 [facility] COMPARISON: CHEST SINGLE AP, July 04, 2017, 14:22. INDICATIONS : Shortness of breath and chest pain- Dyspnea. MEDICAL HISTORY : Venous insufficiency. Gastroesophageal reflux disease SURGICAL HISTORY : None. ENCOUNTER: Subsequent ACUITY: 1 day PAIN SCORE: 10/10 LOCATION: Bilateral chest FINDINGS: Persistent diffuse interstitial prominence with likely very trace fluid in the minor fissure. Improve d aeration in the left lower lung zone. Cardiomediastinal contours are stable. Remainder of the exam is unchanged. CONCLUSION: 1. Improved left lower lung zone airspace disease and small pleural effusion. 2. Interstitial edema with likely very trace pleural fluid in the minor fissure. Harpal Hall MD on July 05, 2017 at 9:24 Board Certified Radiologist. This report was verified electronically.
[2017-07-05] MEDS ORDERED: FUROSEMIDE 40 MG/4 ML VIAL IV PUSH ONE (11:00)
--- NOTE | 2017-07-05 13:11 | HHI.PR ---
Subjective Remarks The patient had significant shortness of breath earlier this morning. He required a nonrebreather. He is currently feeling better. Family is at the bedside and their questions were answered. Apparently the patient has been having difficulty with shortness of breath over the past year. Discussed with nursing. Objective Vitals Vital Signs Date Time Temp Pulse Resp B/P (MAP) Pulse Ox O2 Delivery O2 Flow Rate FiO2 07/05/17 12:00 98.9 87 34 148/89 (108) 99 07/05/17 10:00 97 Partial Non-Rebreather 07/05/17 08:45 95 Nasal Cannula 5.00 07/05/17 08:20 91 Nasal Cannula 3.00 07/05/17 08:00 99.5 91 20 137/79 (98) 92 07/05/17 07:30 92 Room Air 07/05/17 04:00 99.1 88 18 131/77 (95) 93 07/05/17 03:45 96 Nasal Cannula 2.00 07/05/17 00:00 99.4 89 18 137/73 (94) 94 07/04/17 20:36 98.9 90 20 150/80 (103) 95 07/04/17 20:09 98 07/04/17 20:00 Room Air 07/04/17 16:00 99.3 94 30 143/73 (96) 93 07/04/17 16:00 94 07/04/17 14:47 97 21 07/04/17 14:00 100 I/O 07/04/17 07/04/17 07/04/17 07/05/17 07/05/17 07/05/17 07:00 15:00 23:00 07:00 15:00 23:00 Intake Total 1290 ml 1050 ml 420 ml 1150 ml Output Total 1250 ml 600 ml Balance 40 ml 1050 ml 420 ml -600 ml 1150 ml Intake Oral 240 ml 420 ml IV Total 1050 ml 1050 ml 1150 ml Output Urine Total 1250 ml 600 ml # Voids 3 2 # Bowel Movements 1 1 Result Diagram: 07/05/17 0400 07/05/17 0400 Imaging Last Impressions Chest X-Ray 07/05/17 0000 Signed Impressions: Service Date/Time: Wednesday, July 05, 2017 09:00 - CONCLUSION: 1. Improved left lower lung zone airspace disease and small pleural effusion. 2. Interstitial edema with likely very trace pleural fluid in the minor fissure. Harpal Hall MD Abdomen/Pelvis CT 07/02/171919 Signed Impressions: Service Date/Time: Sunday, July 02, 2017 20:36 - CONCLUSION: 1. No acute findings. Colonic diverticulosis without diverticulitis. Left renal cyst. Noam Ma MD Objective Remarks GENERAL: Well-nourished, well-developed patient. SKIN: Warm and dry. HEAD: Normocephalic. EYES: No scleral icterus. No injection or drainage. NECK: Supple, trachea midline. No JVD or lymphadenopathy. CARDIOVASCULAR: Regular rate and rhythm without murmurs, gallops, or rubs. RESPIRATORY: Diffuse wheezing. GASTROINTESTINAL: Abdomen soft, non-tender, nondistended. MUSCULOSKELETAL: No cyanosis, or edema. BACK: Nontender without obvious deformity. NEURO: No gross deficits. PSYCH: Mood and affect appropriate. Medications and IVs Current Medications Medications (Trade) Dose Ordered Sig/Ynes Route Start Time Stop Time Status Last Admin (Aspirin Chew) 81 mg DAILY PO 07/03/17 09:00 07/05/17 08:39 (Vitamin D3) 1,000 units BID PO 07/03/17 09:00 07/05/17 08:39 (Cortef) 50 mg BID PO 07/03/17 09:00 07/05/17 08:41 (Synthroid) 125 mcg DAILY@0600 PO 07/03/17 06:00 07/05/17 05:34 (Vitamin C) 500 mg DAILY PO 07/03/17 09:00 07/05/17 08:41 (Vitamin B12) 500 mcg DAILY PO 07/03/17 09:00 07/05/17 08:41 (Theragran M Tab) 1 tab DAILY PO 07/03/17 09:00 07/05/17 08:39 (Lipitor) 40 mg HS PO 07/03/17 21:00 07/04/17 20:37 (NS Flush) 2 ml UNSCH PRN IV FLUSH 07/03/17 02:30 (NS Flush) 2 ml BID IV FLUSH 07/03/17 09:00 07/05/17 08:41 (Tylenol) 650 mg Q6H PRN PO 07/03/17 02:30 (Morphine Inj) 2 mg Q2H PRN IV PUSH 07/03/17 02:30 (Pepcid Inj) 10 mg Q12HR IV PUSH 07/03/17 09:00 07/05/17 08:41 (Zofran Inj) 4 mg Q6H PRN IV PUSH 07/03/17 02:30 (Restoril) 15 mg HS PRN PO 07/03/17 02:30 (Duoneb Neb) 1 ampule Q2HR NEB PRN INH 07/03/17 02:30 (Heparin Inj) 5,000 units Q8HR SQ 07/03/17 06:00 07/05/17 05:37 Miscellaneous Information 1 Q361D XX 07/03/17 02:30 07/03/17 02:52 (Chlorhexidine 2% Cloth) 3 pack Taper DAILY@04 TOP 07/03/17 04:00 06/29/18 03:59 (Chlorhexidine 2% Cloth) 3 pack UNSCH PRN TOP 07/03/17 02:30 (Nuvia-Colace) 1 tab BID PO 07/03/17 09:00 (Milk Of Magnesia Liq) 30 ml Q12H PRN PO 07/03/17 02:30 (Senokot) 17.2 mg Q12H PRN PO 07/03/17 02:30 (Dulcolax Supp) 10 mg DAILY PRN RECTAL 07/03/17 02:30 (Lactulose Liq) 30 ml DAILY PRN PO 07/03/17 02:30 Ceftriaxone Sodium 1000 mg/ Sodium Chloride 100 ml @ 200 mls/hr Q24H IV 07/04/17 14:00 07/04/17 14:16 (Duoneb Neb) 1 ampule Q6HR WHILE AWAKE NEB NEB 07/04/17 14:00 07/05/17 12:40 A/P Assessment and Plan Sepsis Likely urosepsis. Flu negative. E coli growing in urine. Now with likely PNA. - Panculture. - continue azithromycin and ceftriaxone. Reactive airway disease Unsure of etiology. Required NRB. CXR with congestion, airspace disease. S/p Lasix and Solumedrol. - standing nebs added. - IS. - continue IV ceftriaxone and PO azithromycin. - continue hydrocortisone. - pulmonology consult requested. - check an ABG. - encourage ambulation. Hypopituitarism The pt presented with hypotension. On cortisol and levothyroxine. - Cortisol and levothyroxine per home dosing. - may take home testosterone cream. Renal insufficiency Improved with IVFs. - d/c IVFs. - follow BMP and avoid nephrotoxins. PPx: Subcutaneous heparin Héctor Downey DO Jul 05, 2017 13:11
[2017-07-05] MEDS: cefTRIAXone INJ 1,000 MG in SODIUM CHLORIDE 0.9% INJ 100 ML IV SCH (14:50)
[2017-07-05] MEDS ORDERED: methylPREDNISolone SOD SUCC 40 MG/1 ML VIAL IV PUSH SCH (16:00)
--- NOTE | 2017-07-05 21:26 | MB ---
cc: JACKELYN HAYDEN DATE OF CONSULTATION 07/05/17 REASON FOR CONSULTATION Pneumonia. HISTORY OF PRESENT ILLNESS Mr. Wolf is a 71-year-old male with known history of pituitary adenoma which was surgically removed on replacement therapy. This was about 30 years ago. He is admitted with progressive weakness, fever up to 103 degrees Fahrenheit, dysuria with evidence of urosepsis for which he was treated. He has been complaining of increasing shortness of breath, chest x-ray with left lower lung pneumonia, lung infiltrate. I am asked to see him at this time for same. PAST MEDICAL HISTORY 1. Pituitary adenoma previously resected on replacement therapy, 2. Hypothyroidism, 3. 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 FAMILY HISTORY Noncontributory. MEDICATIONS 1. Probiotic 2. Vitamin C 3. Crestor 4. Aspirin 5. Vitamin tablet. 6. Levothyroxine. 7. Omeprazole. 8. Hydrocortisone 9. Presently on antibiotic therapy. REVIEW OF SYSTEMS A 12-point review of systems as per HPI and past history otherwise negative. PHYSICAL EXAMINATION GENERAL: The patient is alert. VITAL SIGNS: Temperature max 102.7, pulse 90, respirations 18, blood pressure 96/64, oxygen saturation 98% on three liters oxygen nasal cannula. HEENT: Exam unremarkable. Eyes without icterus. NECK: Without adenopathy or thyroid enlargement. Central trachea. CHEST: Few rhonchi at bases. CARDIAC: PMI distant. S1, S2 audible. No murmur or rub. ABDOMEN: Lax. Bowel sounds audible. EXTREMITIES: No clubbing, cyanosis or edema. SKIN: Normal. No lymphadenopathy. LABORATORY DATA White count 9.9, hemoglobin 11.7, hematocrit 36.5, platelets 176,000. Sodium 135, potassium 3.3, BUN 22, creatinine 1.7. IMAGING STUDIES Chest x-ray with left basilar infiltrate, associated small effusion. IMPRESSION 1. Urosepsis 2. Left lower lobe pneumonia 3. Hypopituitarism PLAN The patient has been started on antibiotic therapy and appropriately so. His urosepsis is being addressed. Antibiotic therapy will be continued. It should cover his underlying pulmonary infection as well. Follow up chest x-ray in a few days. Oxygen therapy as needed. I do thank you for asking me to partake in Mr. Manzano's care. We are happy to follow with you as needed. Jackelyn Hayden MD WWW/ /7:42 PM /9:09 PM
[2017-07-05] MEDS: ATORVASTATIN 40 MG TAB PO SCH (21:34)
[2017-07-05] MEDS: FAMOTIDINE 20 MG TAB PO SCH (21:34)
[2017-07-06] VITALS (13 sets, daily range): BP systolic 135–159; BP diastolic 65–87; PULSE 68–100; RESP 18–27; TEMP 98.1–98.7; O2SAT 94–100
[2017-07-06] MEDS: CHLORHEXIDINE GLUCONATE 2 % 1 PACK (2 CLOTHS) TOP SCH (04:00)
--- NOTE | 2017-07-06 06:08 | RADRPT ---
EXAM DATE/TIME: 07/06/2017 05:13 [facility] COMPARISON: CHEST SINGLE AP, July 05, 2017, 9:00. INDICATIONS : Dyspnea. MEDICAL HISTORY : Venous insufficiency. Gastroesophageal reflux disease SURGICAL HISTORY : None. ENCOUNTER: Subsequent ACUITY: 3 days PAIN SCORE: 10/10 LOCATION: Bilateral chest FINDINGS: There is a tiny left pleural effusion. Mild pulmonary edema is suspected and focal consolidation is n ot seen. Heart and mediastinum are unremarkable for technique. CONCLUSION: There is a tiny left pleural effusion and mild degree of pulmonary edema is also suspected. Dago Spence MD on July 06, 2017 at 6:06 Board Certified Radiologist. This report was verified electronically.
[2017-07-06] MEDS: HEPARIN SODIUM - SQ 10,000 UNITS/ML VIAL SQ SCH ×3 (06:36→21:03)
[2017-07-06] MEDS: LEVOTHYROXINE SODIUM 125 MCG TAB PO SCH (06:36)
[2017-07-06] MEDS: SODIUM CHLORIDE 0.9% FLUSH 10 ML FLUSH IV FLUSH SCH ×2 (09:00→20:55)
[2017-07-06] MEDS: RESP: ALBUTEROL 2.5 MG/IPRATROPIUM 0.5 MG NEB (SCH) NEB ×3 (09:01→19:17)
[2017-07-06] MEDS: ASPIRIN 81 MG CHEW TAB PO SCH (10:10)
[2017-07-06] MEDS: DOCUSATE SODIUM 50 MG/SENNA 8.6 MG TAB PO SCH ×2 (10:10→20:54)
[2017-07-06] MEDS: FAMOTIDINE 20 MG TAB PO SCH ×2 (10:10→20:55)
[2017-07-06] MEDS: CHOLECALCIFEROL (VIT D3) 1000 UNIT TAB PO SCH ×2 (10:11→20:55)
[2017-07-06] MEDS: MULTIVITAMINS/MINERALS THERAPEUTIC TAB PO SCH (10:11)
[2017-07-06] MEDS: AZITHROMYCIN 250 MG TAB PO SCH (10:11)
[2017-07-06] MEDS: ASCORBIC ACID 500 MG TAB PO SCH (10:11)
[2017-07-06] MEDS: CYANOCOBALAMIN 100 MCG TAB PO SCH (10:51)
[2017-07-06] MEDS: HYDROCORTISONE 10 MG TAB PO SCH ×2 (10:51→20:54)
[2017-07-06] MEDS ORDERED: FUROSEMIDE 20 MG/2 ML VIAL IV PUSH ONE (13:30)
[2017-07-06] MEDS ORDERED: POTASSIUM CHLORIDE 25 MEQ EFFERVESCENT TAB PO ONE (13:30)
--- NOTE | 2017-07-06 13:38 | HHI.PR ---
Subjective Remarks The pt was feeling well. He had right shoulder pain which has since resolved. He was breathing without difficulty. He would like to walk around. Discussed with nursing at the bedside. Objective Vitals Vital Signs Date Time Temp Pulse Resp B/P (MAP) Pulse Ox O2 Delivery O2 Flow Rate FiO2 07/06/17 09:03 96 Nasal Cannula 3.00 07/06/17 06:00 72 07/06/17 04:00 72 07/06/17 04:00 98.4 70 22 145/74 (97) 94 07/06/17 02:00 94 07/06/17 00:00 98.7 84 20 144/65 (91) 96 07/06/17 00:00 84 07/05/17 22:30 95 Venturi Mask 40 07/05/17 22:22 98 Venturi Mask 6.00 50 07/05/17 22:00 84 07/05/17 20:00 98.8 94 18 146/70 (95) 96 07/05/17 20:00 93 07/05/17 19:00 97 Venturi Mask 50 07/05/17 16:00 99.3 78 25 152/74 (100) 96 07/05/17 15:00 Venturi Mask I/O 07/05/17 07/05/17 07/05/17 07/06/17 07/06/17 07/06/17 07:00 15:00 23:00 07:00 15:00 23:00 Intake Total 1150 ml 720 ml 480 ml Output Total 600 ml 1425 ml 900 ml Balance -600 ml 1150 ml -705 ml -420 ml Intake Oral 720 ml 480 ml IV Total 1150 ml Output Urine Total 600 ml 1425 ml 900 ml # Bowel Movements 4 Result Diagram: 07/05/17 0400 07/05/17 0400 Imaging Last Impressions Chest X-Ray 07/06/17 0600 Signed Impressions: Service Date/Time: Thursday, July 06, 2017 05:13 - CONCLUSION: There is a tiny left pleural effusion and mild degree of pulmonary edema is also suspected. Dago Spence MD Abdomen/Pelvis CT 07/02/17 1920 Signed Impressions: Service Date/Time: Sunday, July 02, 2017 20:36 - CONCLUSION: 1. No acute findings. Colonic diverticulosis without diverticulitis. Left renal cyst. Noam Ma MD Objective Remarks GENERAL: Well-nourished, well-developed patient. SKIN: Warm and dry. HEAD: Normocephalic. EYES: No scleral icterus. No injection or drainage. NECK: Supple, trachea midline. No JVD or lymphadenopathy. CARDIOVASCULAR: Regular rate and rhythm without murmurs, gallops, or rubs. RESPIRATORY: Crackles at the right base. GASTROINTESTINAL: Abdomen soft, non-tender, nondistended. MUSCULOSKELETAL: No cyanosis, or edema. BACK: Nontender without obvious deformity. NEURO: No gross deficits. PSYCH: Mood and affect appropriate. Medications and IVs Current Medications Medications (Trade) Dose Ordered Sig/Ynes Route Start Time Stop Time Status Last Admin (Aspirin Chew) 81 mg DAILY PO 07/03/17 09:00 07/06/17 10:10 (Vitamin D3) 1,000 units BID PO 07/03/17 09:00 07/06/17 10:11 (Cortef) 50 mg BID PO 07/03/17 09:00 07/06/17 10:51 (Synthroid) 125 mcg DAILY@0600 PO 07/03/17 06:00 07/06/17 06:36 (Vitamin C) 500 mg DAILY PO 07/03/17 09:00 07/06/17 10:11 (Vitamin B12) 500 mcg DAILY PO 07/03/17 09:00 07/06/17 10:51 (Theragran M Tab) 1 tab DAILY PO 07/03/17 09:00 07/06/17 10:11 (Lipitor) 40 mg HS PO 07/03/17 21:00 07/05/17 21:34 (NS Flush) 2 ml UNSCH PRN IV FLUSH 07/03/17 02:30 (NS Flush) 2 ml BID IV FLUSH 07/03/17 09:00 07/06/17 09:00 (Tylenol) 650 mg Q6H PRN PO 07/03/17 02:30 07/06/17 12:00 (Morphine Inj) 2 mg Q2H PRN IV PUSH 07/03/17 02:30 (Zofran Inj) 4 mg Q6H PRN IV PUSH 07/03/17 02:30 (Restoril) 15 mg HS PRN PO 07/03/17 02:30 (Duoneb Neb) 1 ampule Q2HR NEB PRN INH 07/03/17 02:30 (Heparin Inj) 5,000 units Q8HR SQ 07/03/17 06:00 07/06/17 06:36 Miscellaneous Information 1 Q361D XX 07/03/17 02:30 07/03/17 02:52 (Chlorhexidine 2% Cloth) 3 pack Taper DAILY@04 TOP 07/03/17 04:00 06/29/18 03:59 (Chlorhexidine 2% Cloth) 3 pack UNSCH PRN TOP 07/03/17 02:30 (Nuvia-Colace) 1 tab BID PO 07/03/17 09:00 07/06/17 10:10 (Milk Of Magnesia Liq) 30 ml Q12H PRN PO 07/03/17 02:30 (Senokot) 17.2 mg Q12H PRN PO 07/03/17 02:30 (Dulcolax Supp) 10 mg DAILY PRN RECTAL 07/03/17 02:30 (Lactulose Liq) 30 ml DAILY PRN PO 07/03/17 02:30 Ceftriaxone Sodium 1000 mg/ Sodium Chloride 100 ml @ 200 mls/hr Q24H IV 07/04/17 14:00 07/05/17 14:50 (Duoneb Neb) 1 ampule Q6HR WHILE AWAKE NEB NEB 07/04/17 14:00 07/06/17 09:01 (Pepcid) 20 mg BID PO 07/05/17 21:00 07/06/17 10:10 (Zithromax) 500 mg DAILY PO 07/06/17 09:00 07/06/17 10:11 (Lasix Inj) 20 mg ONCE ONCE IV PUSH 07/06/17 13:30 07/06/17 13:31 UNV (K-Lyte Cl Eff) 25 meq ONCE ONCE PO 07/06/17 13:30 07/06/17 13:31 UNV A/P Assessment and Plan Sepsis Likely urosepsis. Flu negative. E coli growing in urine. Now with likely PNA. - Panculture. - continue azithromycin and ceftriaxone. Acute respiratory failure Possibly s/t pneumonia. Required NRB. CXR with congestion, airspace disease. S/ p Lasix and Solumedrol. BNP elevated over 200. Pulmonology consult appreciated. - standing nebs added. - IS. - continue IV ceftriaxone and PO azithromycin. - continue hydrocortisone. - pulmonology following. - encourage ambulation. PT added. - Lasix 20 mg IV x 1. - echocardiogram pending. Hypopituitarism The pt presented with hypotension. On cortisol and levothyroxine. - Cortisol and levothyroxine per home dosing. - may take home testosterone cream. Renal insufficiency Improved with IVFs. - d/c IVFs. - follow BMP and avoid nephrotoxins. PPx: Subcutaneous heparin Discharge Planning Transfer to the floor. Héctor Downey DO Jul 06, 2017 13:37
[2017-07-06] MEDS: cefTRIAXone INJ 1,000 MG in SODIUM CHLORIDE 0.9% INJ 100 ML IV SCH (15:35)
[2017-07-06] MEDS ORDERED: PHARMACY ORDERED LAB ONE (15:45)
[2017-07-06] MEDS: ATORVASTATIN 40 MG TAB PO SCH (20:55)
[2017-07-06 22:33] LABS: HEMATOCRIT 33.7 % (39.0-51.0); HEMOGLOBIN 10.8 GM/DL (13.0-17.0); MEAN CORPUSCULAR HEMOGLOBIN 20.9 PG (27.0-34.0); MEAN CORPUSCULAR HGB CONC 32.1 % (32.0-36.0); MEAN PLATELET VOLUME 8.2 FL (7.0-11.0); PLATELET COUNT 232 TH/MM3 (150-450); RED BLOOD COUNT 5.19 MIL/MM3 (4.50-5.90); RED CELL DISTRIBUTION WIDTH 17.6 % (11.6-17.2); WHITE BLOOD COUNT 11.5 TH/MM3 (4.0-11.0)
[2017-07-06 22:39] LABS: BICARBONATE 27.1 MEQ/L (21.0-32.0); BLOOD UREA NITROGEN 29 MG/DL (7-18); CALCIUM 8.9 MG/DL (8.5-10.1); CHLORIDE 104 MEQ/L (98-107); CREATININE 1.16 MG/DL (0.60-1.30); GLOMERULAR FILTRATION RATE 62 ML/MIN (>89); GLUCOSE,RANDOM 137 MG/DL (74-106); IRON (FE) 32 MCG/DL (65-175); SODIUM (NA) 140 MEQ/L (136-145)
[2017-07-06 23:05] LABS: % SATURATION IRON PROFILE 8.4 % (20-50); FERRITIN 72 NG/ML (26-388); FOLATE 19.5 NG/ML (3.1-17.5); TOTAL IRON BINDING CAPACITY 382 MCG/DL (250-450)
--- NOTE | 2017-07-06 23:44 | HHI.PR ---
Subjective Remarks ALERT ON O2 VIA NC FEELING BETTER Objective Vital Signs Date Time Temp Pulse Resp B/P (MAP) Pulse Ox O2 Delivery O2 Flow Rate FiO2 07/06/17 20:00 98.1 87 18 149/87 (107) 96 07/06/17 19:17 96 Nasal Cannula 3.00 07/06/17 18:00 83 07/06/17 16:00 98.5 100 27 158/77 (104) 100 07/06/17 16:00 100 07/06/17 14:00 98 07/06/17 13:00 26 07/06/17 12:00 98.1 100 22 135/74 (94) 95 07/06/17 12:00 100 07/06/17 10:00 68 07/06/17 09:03 96 Nasal Cannula 3.00 07/06/17 08:00 98.5 72 21 159/79 (105) 96 07/06/17 08:00 72 07/06/17 06:00 72 07/06/17 04:00 72 07/06/17 04:00 98.4 70 22 145/74 (97) 94 07/06/17 02:00 94 07/06/17 00:00 98.7 84 20 144/65 (91) 96 07/06/17 00:00 84 I/O 07/06/17 07/06/17 07/06/17 07/07/17 07/07/17 07/07/17 07:00 15:00 23:00 07:00 15:00 23:00 Intake Total 480 ml 600 ml Output Total 900 ml 1600 ml Balance -420 ml -1000 ml Intake Oral 480 ml 500 ml IV Total 100 ml Output Urine Total 900 ml 1600 ml Result Diagram: 07/06/17220307/06/172203 Objective Remarks GENERAL: SKIN: Warm and dry. HEAD: Atraumatic. Normocephalic. EYES: Pupils equal and round. No scleral icterus. No injection or drainage. ENT: No nasal bleeding or discharge. Mucous membranes pink and moist. NECK: Trachea midline. No JVD. CARDIOVASCULAR: Regular rate and rhythm. RESPIRATORY: No accessory muscle use. Clear to auscultation. Breath sounds equal bilaterally. GASTROINTESTINAL: Abdomen soft, non-tender, nondistended. Hepatic and splenic margins not palpable. MUSCULOSKELETAL: Extremities without clubbing, cyanosis, or edema. No obvious deformities. NEUROLOGICAL: Awake and alert. No obvious cranial nerve deficits. Motor grossly within normal limits. Five out of 5 muscle strength in the arms and legs. Normal speech. PSYCHIATRIC: Appropriate mood and affect; insight and judgment normal. Assessment and Plan Assessment and Plan RESPIRATORY FAILURE PNA UROSEPSIS PLAN O2 NEEDED CONTINUE ANTIBIOTICS INCREASE ACTIVITY Jackelyn Hayden MD Jul 06, 2017 23:44
[2017-07-07] VITALS (8 sets, daily range): BP systolic 114–161; BP diastolic 59–82; PULSE 78–95; RESP 17–22; TEMP 98–98.6; O2SAT 95–97
[2017-07-07] MEDS: CHLORHEXIDINE GLUCONATE 2 % 1 PACK (2 CLOTHS) TOP SCH (03:05)
[2017-07-07] MEDS: LEVOTHYROXINE SODIUM 125 MCG TAB PO SCH (05:26)
[2017-07-07] MEDS: HEPARIN SODIUM - SQ 10,000 UNITS/ML VIAL SQ SCH ×3 (05:27→22:43)
[2017-07-07 07:46] LABS: HEMATOCRIT 30.8 % (39.0-51.0); HEMOGLOBIN 10.2 GM/DL (13.0-17.0); MEAN CELL VOLUME 65.1 FL (80.0-100.0); MEAN CORPUSCULAR HEMOGLOBIN 21.5 PG (27.0-34.0); MEAN PLATELET VOLUME 8.6 FL (7.0-11.0); PLATELET COUNT 204 TH/MM3 (150-450); RED BLOOD COUNT 4.73 MIL/MM3 (4.50-5.90); RED CELL DISTRIBUTION WIDTH 17.6 % (11.6-17.2); WHITE BLOOD COUNT 10.1 TH/MM3 (4.0-11.0)
[2017-07-07 08:00] LABS: BICARBONATE 26.3 MEQ/L (21.0-32.0); CALCIUM 8.9 MG/DL (8.5-10.1); CREATININE 1.05 MG/DL (0.60-1.30); MAGNESIUM 2.4 MG/DL (1.5-2.5)
[2017-07-07] MEDS: RESP: ALBUTEROL 2.5 MG/IPRATROPIUM 0.5 MG NEB (SCH) NEB ×3 (08:52→21:56)
[2017-07-07] MEDS: DOCUSATE SODIUM 50 MG/SENNA 8.6 MG TAB PO SCH ×2 (09:00→20:26)
[2017-07-07] MEDS: CHOLECALCIFEROL (VIT D3) 1000 UNIT TAB PO SCH ×2 (09:49→20:24)
[2017-07-07] MEDS: ASCORBIC ACID 500 MG TAB PO SCH (09:49)
[2017-07-07] MEDS: ASPIRIN 81 MG CHEW TAB PO SCH (09:49)
[2017-07-07] MEDS: HYDROCORTISONE 10 MG TAB PO SCH ×2 (09:49→20:23)
[2017-07-07] MEDS: FAMOTIDINE 20 MG TAB PO SCH ×2 (09:50→20:24)
[2017-07-07] MEDS: MULTIVITAMINS/MINERALS THERAPEUTIC TAB PO SCH (09:50)
[2017-07-07] MEDS: AZITHROMYCIN 250 MG TAB PO SCH (09:50)
[2017-07-07] MEDS: SODIUM CHLORIDE 0.9% FLUSH 10 ML FLUSH IV FLUSH SCH ×2 (09:54→20:26)
[2017-07-07] MEDS: CYANOCOBALAMIN 100 MCG TAB PO SCH (14:16)
[2017-07-07] MEDS: cefTRIAXone INJ 1,000 MG in SODIUM CHLORIDE 0.9% INJ 100 ML IV SCH (14:16)
--- NOTE | 2017-07-07 14:33 | HHI.PR ---
Subjective Remarks Patient reports he is feeling slightly better. Shortness of breath has improved. Still requiring oxygen. No chest pain. Objective Vitals Vital Signs Date Time Temp Pulse Resp B/P (MAP) Pulse Ox O2 Delivery O2 Flow Rate FiO2 07/07/17 12:00 98.0 95 20 149/82 (104) 96 07/07/17 11:13 97 Nasal Cannula 2.00 07/07/17 08:53 97 Nasal Cannula 3.00 07/07/17 08:00 98.1 78 22 126/76 (93) 96 07/07/17 04:00 Nasal Cannula 2.00 07/07/17 04:00 98.0 84 17 127/59 (81) 96 07/07/17 00:00 Nasal Cannula 2.00 07/07/17 00:00 98.3 90 17 114/70 (85) 95 07/06/17 21:30 Nasal Cannula 2.00 07/06/17 20:00 98.1 87 18 149/87 (107) 96 07/06/17 19:17 96 Nasal Cannula 3.00 07/06/17 18:00 83 07/06/17 16:00 98.5 100 27 158/77 (104) 100 07/06/17 16:00 100 I/O 07/06/17 07/06/17 07/06/17 07/07/17 07/07/17 07/07/17 07:00 15:00 23:00 07:00 15:00 23:00 Intake Total 480 ml 600 ml 380 ml Output Total 900 ml 1600 ml 250 ml Balance -420 ml -1000 ml 130 ml Intake Oral 480 ml 500 ml 380 ml IV Total 100 ml Output Urine Total 900 ml 1600 ml 250 ml # Bowel Movements 1 Result Diagram: 07/07/17 0540 07/07/17 0540 Imaging Last Impressions Chest X-Ray 07/06/17 0600 Signed Impressions: Service Date/Time: Thursday, July 06, 2017 05:13 - CONCLUSION: There is a tiny left pleural effusion and mild degree of pulmonary edema is also suspected. Dago Spence MD Abdomen/Pelvis CT 07/02/17 1920 Signed Impressions: Service Date/Time: Sunday, July 02, 2017 20:36 - CONCLUSION: 1. No acute findings. Colonic diverticulosis without diverticulitis. Left renal cyst. Noam Ma MD Objective Remarks GENERAL: This is a well-nourished, well-developed patient, in no apparent distress. CARDIOVASCULAR: Normal rate and regular rhythm without murmurs, gallops, or rubs. RESPIRATORY: Good respiratory efforts. Diminished breath sounds at the bases, faint crackles bilaterally at the bases. GASTROINTESTINAL: Abdomen soft, non-tender, non-distended. Normal active bowel sounds MUSCULOSKELETAL: Extremities without cyanosis, or edema. NEURO: Alert & Oriented x4 to person, place, time, situation. Moves all ext x4 PSYCH: Appropriate mood and affect. A/P Assessment and Plan 72-year-old male with: Sepsis Secondary to UTI and pneumonia. Flu negative. E coli growing in urine. - continue azithromycin and ceftriaxone. Acute hypoxemic respiratory failure Possibly s/t pneumonia. Required NRB. CXR with congestion, airspace disease. S/ p Lasix and Solumedrol. BNP elevated over 200. Pulmonology consult appreciated. - standing nebs. - continue IV ceftriaxone and PO azithromycin. - continue hydrocortisone. - encourage ambulation. PT added. -Give another dose of IV Lasix 20 mg 1 today. - echocardiogram pending. Hypopituitarism The pt presented with hypotension. On cortisol and levothyroxine. - Cortisol and levothyroxine per home dosing. - may take home testosterone cream. Renal insufficiency Improved with IVFs. -IV fluids discontinued. - follow BMP and avoid nephrotoxins. PPx: Subcutaneous heparin Discharge Planning Probably within the next 24-48 hours. Need to wean off oxygen or may need home oxygen. Fredis Jeffries MD Jul 07, 2017 14:33
[2017-07-07] MEDS ORDERED: FUROSEMIDE 20 MG/2 ML VIAL IV PUSH ONE (15:00)
--- NOTE | 2017-07-07 16:32 | HHI.PR ---
Subjective Remarks ALERT ON O2 VIA NC FEELING BETTER Objective Vital Signs Date Time Temp Pulse Resp B/P (MAP) Pulse Ox O2 Delivery O2 Flow Rate FiO2 07/07/17 12:00 98.0 95 20 149/82 (104) 96 07/07/17 11:13 97 Nasal Cannula 2.00 07/07/17 08:53 97 Nasal Cannula 3.00 07/07/17 08:00 98.1 78 22 126/76 (93) 96 07/07/17 04:00 Nasal Cannula 2.00 07/07/17 04:00 98.0 84 17 127/59 (81) 96 07/07/17 00:00 Nasal Cannula 2.00 07/07/17 00:00 98.3 90 17 114/70 (85) 95 07/06/17 21:30 Nasal Cannula 2.00 07/06/17 20:00 98.1 87 18 149/87 (107) 96 07/06/17 19:17 96 Nasal Cannula 3.00 07/06/17 18:00 83 I/O 07/06/17 07/06/17 07/06/17 07/07/17 07/07/17 07/07/17 07:00 15:00 23:00 07:00 15:00 23:00 Intake Total 480 ml 600 ml 380 ml Output Total 900 ml 1600 ml 250 ml Balance -420 ml -1000 ml 130 ml Intake Oral 480 ml 500 ml 380 ml IV Total 100 ml Output Urine Total 900 ml 1600 ml 250 ml # Bowel Movements 1 Result Diagram: 07/07/17 0540 07/07/17 0540 Objective Remarks GENERAL: SKIN: Warm and dry. HEAD: Atraumatic. Normocephalic. EYES: Pupils equal and round. No scleral icterus. No injection or drainage. ENT: No nasal bleeding or discharge. Mucous membranes pink and moist. NECK: Trachea midline. No JVD. CARDIOVASCULAR: Regular rate and rhythm. RESPIRATORY: No accessory muscle use. Clear to auscultation. Breath sounds equal bilaterally. GASTROINTESTINAL: Abdomen soft, non-tender, nondistended. Hepatic and splenic margins not palpable. MUSCULOSKELETAL: Extremities without clubbing, cyanosis, or edema. No obvious deformities. NEUROLOGICAL: Awake and alert. No obvious cranial nerve deficits. Motor grossly within normal limits. Five out of 5 muscle strength in the arms and legs. Normal speech. PSYCHIATRIC: Appropriate mood and affect; insight and judgment normal. Assessment and Plan Assessment and Plan RESPIRATORY FAILURE SMALL EFFUSION UROSEPSIS PLAN O2 NEEDED CONTINUE ANTIBIOTICS INCREASE ACTIVITY Jackelyn Hayden MD Jul 07, 2017 16:32
--- NOTE | 2017-07-07 16:55 | ECHRPT ---
Indication: HEART FAILURE CONCLUSIONS Normal left ventricular size. Mild concentric left ventricular hypertrophy. The left ventricular systolic function is normal (EF 60%). Trivial pulmonary valve regurgitation. BP: 127 / 59 HR: 84 Rhythm: Sinus MEASUREMENTS (Male / Female) Normal Values Technical Quality:Fair 2D ECHO LV Diastolic Diameter PLAX 4.0 cm 4.2 - 5.9 / 3.9 - 5.3 cm LV Systolic Diameter PLAX 2.5 cm IVS Diastolic Thickness 1.2 cm 0.6 - 1.0 / 0.6 - 0.9 cm LVPW Diastolic Thickness 1.2 cm 0.6 - 1.0 / 0.6 - 0.9 cm LV Relative Wall Thickness 0.6 RV Internal Dim ED PLAX 2.5 cm LVOT Diameter 2.2 cm Aortic Root Diameter 3.5 cm LA Systolic Diameter LX 3.5 cm 3.0 - 4.0 / 2.7 - 3.8 cm M-MODE AV Cusp Separation MM 2.1 cm DOPPLER AV Peak Velocity 175.0 cm/s AV Peak Gradient 12.3 mmHg AV Mean Gradient 8.0 mmHg AV Velocity Time Integral 30.9 cm LVOT Peak Velocity 171.0 cm/s LVOT Peak Gradient 11.7 mmHg LVOT Velocity Time Integral 32.1 cm AV Area Cont Eq vti 3.9 cm AV Area Cont Eq pk 3.7 cm Mitral E Point Velocity 102.0 cm/s Mitral A Point Velocity 55.8 cm/s Mitral E to A Ratio 1.8 LV E' Lateral Velocity 9.5 cm/s Mitral E to LV E' Lateral Ratio 10.8 LV E' Septal Velocity 7.2 cm/s Mitral E to LV E' Septal Ratio 14.1 PV Peak Velocity 62.4 cm/s PV Peak Gradient 1.6 mmHg FINDINGS LEFT VENTRICLE Normal left ventricular size. Mild concentric left ventricular hypertrophy. The left ventricular systolic function is normal (EF 60%). RIGHT VENTRICLE Normal right ventricular size and systolic function. LEFT ATRIUM The left atrial size is normal. RIGHT ATRIUM The right atrial size is normal. ATRIAL SEPTUM No atrial level shunt is demonstrated by color flow Doppler interrogation. AORTA The aortic root and proximal ascending aorta are normal in size on limited imaging. MITRAL VALVE Structurally normal mitral valve. No mitral valve stenosis or regurgitation. AORTIC VALVE Trileaflet aortic valve. No aortic valve stenosis or regurgitation. TRICUSPID VALVE Structurally normal tricuspid valve. No tricuspid valve stenosis or regurgitation. PULMONARY VALVE Trivial pulmonary valve regurgitation. VESSELS The inferior vena cava is normal in size. PERICARDIUM No pericardial effusion. Alma Faust MD, FACC (Electronically Signed) Final Date:07 July 2017 16:54
[2017-07-07] MEDS ORDERED: POTASSIUM CHLORIDE 20 MEQ CONTROLLED RELEASE TAB PO ONE (18:00)
[2017-07-07] MEDS: ATORVASTATIN 40 MG TAB PO SCH (20:24)
[2017-07-08] VITALS: BP 145/67; PULSE 97; RESP 20; TEMP 98.5; O2SAT 93
[2017-07-08] MEDS: CHLORHEXIDINE GLUCONATE 2 % 1 PACK (2 CLOTHS) TOP SCH (03:05)
[2017-07-08 04:00] VITALS: BP 140/68; PULSE 84; RESP 21; TEMP 98; O2SAT 93
[2017-07-08] MEDS: LEVOTHYROXINE SODIUM 125 MCG TAB PO SCH (05:02)
[2017-07-08] MEDS: HEPARIN SODIUM - SQ 10,000 UNITS/ML VIAL SQ SCH (05:04)
[2017-07-08 08:01] VITALS: BP 155/77; PULSE 77; RESP 18; TEMP 98.5; O2SAT 94
[2017-07-08 08:15] LABS: HEMATOCRIT 31.6 % (39.0-51.0); MEAN CELL VOLUME 65.7 FL (80.0-100.0); MEAN CORPUSCULAR HEMOGLOBIN 20.9 PG (27.0-34.0); MEAN CORPUSCULAR HGB CONC 31.8 % (32.0-36.0); MEAN PLATELET VOLUME 7.7 FL (7.0-11.0); PLATELET COUNT 236 TH/MM3 (150-450); RED BLOOD COUNT 4.81 MIL/MM3 (4.50-5.90); RED CELL DISTRIBUTION WIDTH 17.5 % (11.6-17.2); WHITE BLOOD COUNT 9.7 TH/MM3 (4.0-11.0)
[2017-07-08] MEDS: RESP: ALBUTEROL 2.5 MG/IPRATROPIUM 0.5 MG NEB (SCH) NEB (08:18)
[2017-07-08] MEDS: CHOLECALCIFEROL (VIT D3) 1000 UNIT TAB PO SCH (09:21)
[2017-07-08] MEDS: AZITHROMYCIN 250 MG TAB PO SCH (09:21)
[2017-07-08] MEDS: DOCUSATE SODIUM 50 MG/SENNA 8.6 MG TAB PO SCH (09:21)
[2017-07-08] MEDS: FAMOTIDINE 20 MG TAB PO SCH (09:21)
[2017-07-08] MEDS: MULTIVITAMINS/MINERALS THERAPEUTIC TAB PO SCH (09:21)
[2017-07-08] MEDS: ASCORBIC ACID 500 MG TAB PO SCH (09:21)
[2017-07-08] MEDS: ASPIRIN 81 MG CHEW TAB PO SCH (09:21)
[2017-07-08] MEDS: HYDROCORTISONE 10 MG TAB PO SCH (09:21)
[2017-07-08] MEDS: SODIUM CHLORIDE 0.9% FLUSH 10 ML FLUSH IV FLUSH SCH (09:22)
[2017-07-08 09:28] LABS: BICARBONATE 28.9 MEQ/L (21.0-32.0); CALCIUM 8.8 MG/DL (8.5-10.1); CREATININE 1.17 MG/DL (0.60-1.30)
[2017-07-08] MEDS ORDERED: CEFU1TAB20 PO (10:44)
[2017-07-08] MEDS ORDERED: FURO1TAB62 PO (10:45)
[2017-07-08] MEDS ORDERED: POTA10CA PO (10:45)
[2017-07-08] MEDS: CYANOCOBALAMIN 100 MCG TAB PO SCH (10:49)
--- NOTE | 2017-07-08 10:49 | HHI.DS ---
Discharge Summary Admission Date Jul 02, 2017 at 22:10 Discharge Date: Jul 08, 2017 Admitting Diagnosis Adrenal crisis (1) Sepsis ICD Code: A41.9 - Sepsis, unspecified organism (2) UTI (urinary tract infection) ICD Code: N39.0 - Urinary tract infection, site not specified (3) Pneumonia ICD Code: J18.9 - Pneumonia, unspecified organism (4) Respiratory failure ICD Code: J96.90 - Respiratory failure, unspecified, unspecified whether with hypoxia or hypercapnia (5) Pulmonary edema ICD Code: J81.1 - Chronic pulmonary edema Procedures None Brief History - From Admission History of present illness from the admitting physician 72-year-old male with PMH of pituitary tumor status post resection 30 years ago , on supplemental hydrocortisone, kidney stones, alpha thalassemia presents today with complaints of not feeling well since yesterday. He has had fever of 103.1F at home today and associated symptoms include dysuria, increased urinary frequency, nausea and generalized fatigue. He has had dysuria 2 weeks ago which he has completed course of antibiotics. Denies any chest pain, shortness of breath, vomiting, abdominal pain, focal weakness or numbness. CBC/BMP: 07/08/17 0752 07/08/17 0752 Significant Findings Laboratory Tests Test 07/05/17 17:02 07/06/17 22:04 07/07/17 05:40 07/08/17 07:52 Arterial Blood pH 7.50 (7.380-7.420) Arterial Blood Partial Pressure CO2 29 mmHg (38-42) Blood Gas Hemoglobin 10.5 G/DL (12.0-16.0) White Blood Count 11.5 TH/MM3 (4.0-11.0) Hemoglobin 10.8 GM/DL (13.0-17.0) 10.2 GM/DL (13.0-17.0) 10.0 GM/DL (13.0-17.0) Hematocrit 33.7 % (39.0-51.0) 30.8 % (39.0-51.0) 31.6 % (39.0-51.0) Mean Corpuscular Volume 65.0 FL (80.0-100.0) 65.1 FL (80.0-100.0) 65.7 FL (80.0-100.0) Mean Corpuscular Hemoglobin 20.9 PG (27.0-34.0) 21.5 PG (27.0-34.0) 20.9 PG (27.0-34.0) Red Cell Distribution Width 17.6 % (11.6-17.2) 17.6 % (11.6-17.2) 17.5 % (11.6-17.2) Blood Urea Nitrogen 29 MG/DL (7-18) 33 MG/DL (7-18) 29 MG/DL (7-18) Random Glucose 137 MG/DL (74-106) 110 MG/DL (74-106) Potassium Level 3.4 MEQ/L (3.5-5.1) 3.3 MEQ/L (3.5-5.1) Estimat Glomerular Filtration Rate 62 ML/MIN (>89) 69 ML/MIN (>89) 61 ML/MIN (>89) Iron Level 32 MCG/DL (65-175) Percent Iron Saturation 8.4 % (20-50) Folate 19.5 NG/ML (3.1-17.5) Mean Corpuscular Hemoglobin Concent 31.8 % (32.0-36.0) Imaging Last Impressions Chest X-Ray 07/06/17 0600 Signed Impressions: Service Date/Time: Thursday, July 06, 2017 05:13 - CONCLUSION: There is a tiny left pleural effusion and mild degree of pulmonary edema is also suspected. Dago Spence MD Abdomen/Pelvis CT 07/02/17 1920 Signed Impressions: Service Date/Time: Sunday, July 02, 2017 20:36 - CONCLUSION: 1. No acute findings. Colonic diverticulosis without diverticulitis. Left renal cyst. Noam Ma MD PE at Discharge GENERAL: This is a well-nourished, well-developed patient, in no apparent distress. CARDIOVASCULAR: Normal rate and regular rhythm without murmurs, gallops, or rubs. RESPIRATORY: Good respiratory efforts. Lung sounds are clear bilaterally. GASTROINTESTINAL: Abdomen soft, non-tender, non-distended. Normal active bowel sounds MUSCULOSKELETAL: Extremities without cyanosis, or edema. NEURO: Alert & Oriented x4 to person, place, time, situation. Moves all ext x4 PSYCH: Appropriate mood and affect. Pt update on day of discharge Patient reports he is feeling much better. He is on room air. No chest pain or shortness of breath. Hospital Course 72-year-old male with admitted and treated for the following: Sepsis Secondary to UTI and pneumonia. Flu negative. E coli grew urine. He was treated with azithromycin and Rocephin. Sepsis resolved. Patient is discharged on cefuroxime and azithromycin to complete the course of treatment. Acute hypoxemic respiratory failure Possibly s/t pneumonia. Required NRB. CXR with congestion, airspace disease and mild pulmonary edema. BNP elevated in the 200s. A 2-D echocardiogram was unremarkable. Patient was followed by pulmonology. He was given IV Lasix and antibiotics as above. Respiratory symptoms completely resolved and he was weaned down to room air.. Pulmonology consult appreciated. Patient given a few more days of oral Lasix. Also discussed concern of chronic hydrocortisone may be contributing to pulmonary edema. Advised him to discuss with PCP regarding cutting down the dose. Renal insufficiency Secondary to above. Resolved with IV fluid. Hypopituitarism The pt presented with hypotension. On cortisol and levothyroxine. - Cortisol and levothyroxine per home dosing. - may take home testosterone cream. Pt Condition on Discharge: Good Discharge Disposition: Discharge Home Discharge Time: <= 30 minutes Discharge Instructions DIET: Follow Instructions for: Heart Healthy Diet Activities you can perform: Regular-No Restrictions Follow up Referrals: PCP Follow-up - 1 Week PCP Follow-up - 1 Week @ [facility] New Medications: Azithromycin (Azithromycin) 500 Mg Tab 500 MG PO DAILY for Infection, #2 TAB 0 Refills Cefuroxime (Cefuroxime) 500 Mg Tab 500 MG PO BID for Infection, #10 TAB 0 Refills Furosemide (Lasix) 20 Mg Tab 20 MG PO DAILY, #4 TAB 0 Refills Potassium Chloride ER (Potassium Chloride ER) 10 Meq Cap 10 MEQ PO DAILY for Electrolyte Replacement, #4 CAP 0 Refills Continued Medications: Aspirin (Aspir-81) 81 Mg Tab 81 MG PO DAILY, TAB Calcium Ascorbate (Vitamin C) 500 Mg Tab 500 MG PO DAILY, TAB Cholecalciferol (Vitamin D3) 1,000 Unit Tab 1000 UNIT PO BID, TAB Cyanocobalamin (Vitamin B-12) 500 Mcg Tab 1 TAB PO DAILY Hydrocortisone (Hydrocortisone) 10 Mg Tab 50 MG PO BID, TAB INCREASE DIRECTED Levothyroxine Sodium (Levothyroxine 125 mcg) 125 Mcg Tab 1 TAB PO DAILY, TAB Multiple Vitamins W/ Minerals (Multi For Him) For Him Cap 1 CAP PO DAILY, CAP [place]-3 Fatty Acids (Fish Oil 1200 mg) 1 Cap Cap 1 CAP PO DAILY TAKES 1 TSP OIL Omeprazole 40 mg (Omeprazole 40 mg) 40 Mg Cap 40 MG PO DAILY Probiotic Product (Probiotic Acidophilus) 12.9 Mg (2 Billion Cell) Cap 1 TAB PO DAILY, CAP Rosuvastatin Calcium (Crestor) 40 Mg Tab 20 MG PO HS, #30 TAB Discontinued Medications: Hydrocodone-Acetaminophen 10-325 mg ([place] 10-325 mg) Acetaminophen 325/10 Hydrocodone Tab 1 TAB PO Q6H PRN for pain, #60 TAB Fredis Jeffries MD Jul 08, 2017 10:49
--- NOTE | 2017-07-08 10:49 | HHI.DCPOC ---
Discharge Care Plan Diagnosis: (1) Pneumonia (2) Respiratory failure (3) Sepsis (4) Pulmonary edema (5) UTI (urinary tract infection) Goals to Promote Your Health * To prevent worsening of your condition and complications * To maintain your health at the optimal level Directions to Meet Your Goals Take your medications as prescribed Follow your dietary instruction Follow activity as directed Keep your appointments as scheduled Take your immunizations and boosters as scheduled If your symptoms worsen call your PCP, if no PCP go to Urgent Care Center or Emergency Room Smoking is Dangerous to Your Health. Avoid second hand smoke Call the 24-hour hour crisis hotline for domestic abuse at Fredis Jeffries MD Jul 08, 2017 10:49
[2017-07-08 12:01] VITALS: BP 141/63; PULSE 97; RESP 18; TEMP 98.1; O2SAT 95
[2017-07-08] MEDS ORDERED: AZIT500T2 PO (14:45)
== END 2017-07-08 13:30 | disposition home or self-care (01) | DRG 871 ==
LOC: PHED 18:52 → PHEDA 22:10 → N03A 07-03 01:28 → N03B 07-04 18:43 → N03A 07-05 18:55 → N04A 07-06 19:04
PROVIDERS: ADMIT Family Medicine; ATTEND Family Medicine
DX: A41.9 Sepsis, unspecified organism (principal); J18.9 Pneumonia, unspecified organism; J96.01 Acute respiratory failure with hypoxia; D56.0 Alpha thalassemia; E23.0 Hypopituitarism; Z79.52 Long term (current) use of systemic steroids; N39.0 Urinary tract infection, site not specified; B96.20 Unspecified Escherichia coli [E. coli] as the cause of diseases classified elsewhere; K57.30 Diverticulosis of large intestine without perforation or abscess without bleeding; N28.9 Disorder of kidney and ureter, unspecified; E03.9 Hypothyroidism, unspecified; E29.1 Testicular hypofunction
CPT/HCPCS: 36600; 71045; 74177; 76937; 80048; 80053; 81001; 82607; 82728; 82746; 82805; 83540; 83550; 83605; 83690; 83735; 83880; 84100; 84484; 85025; 85027; 85610; 85730; 87040; 87077; 87086; 87186; 87641; 87804; 93005; 93306; 94150; 94618; 94640; 94664; 96361; 96365; 96375; J0456; J0696; J1644; J1720; J1940; J2405; J2543; J2930; J3370; J7030; J7040; J7050; Q9967